=== PATIENT | female | born 1990 | race Caucasian/White ===

== ENCOUNTER 2017-11-21 20:19 | Emergency (ER) | payer OTHER, SELFPAY ==
[2017-11-21 22:04] VITALS: BP 141/80; PULSE 96; RESP 20; TEMP 37.7; O2SAT 100; BMI 60.1
[2017-11-21 22:42] LABS: UTC Influenza A Antigen Negative (Negative); UTC Influenza B Antigen Negative (Negative); UTC Strep Screen (Rapid) Negative (Negative)
--- NOTE | 2017-11-21 22:59 | HMH.EDUTC ---
[facility] [place] Clinical Impression: Viral syndrome, Encounter to obtain excuse from work Disposition: Home, Self-Care Condition on Discharge: Good Instructions: DI for Viral Syndrome Additional Instructions: * No sign of bacterial infection. Likely viral. Virus can take 7-14 days to run their course * Nasal Saline to remove nasal drainage and help with nasal congestion. Hard to eat, drink, sleep with nasal congestion so important to keep nose cleaned out * Monitor Temp. Follow up if fever develops * Encourage fluids, water, gatorade, powerade, pedialyte if infant/toddler/child * warm salt water gargles * warm fluids * sore throat lozenges * sleep elevated * humidifier/vaporizer * Bromfed may cause drowsiness. Know how it effects you (or your child) before driving, caring for small children, or sending your child to school. No other antihistamines/allergy medications while taking bromfed. Prescriptions: Brompheniramine/Pseudoephed/Dm [Bromfed DM Cough Syrup 5mL] 10 ml PO QID PRN #240 ml PRN Reason: Cough Referrals: Silverio Tavera MD [Primary Care Provider] - (IMMEDIATELY for new or worsening symptoms OR no noticeable improvement over the next 48-72 hours. 911 for difficulty breathing or swallowing.) Forms: Work/School Release Time of Disposition: 23:06 Medical Decision Making Vital Signs: 11/21/17 22:04 Temperature 99.8 F H Temperature Source Temporal Artery Scan Pulse Rate [Brachial] 96 H Respiratory Rate 20 Blood Pressure [Right Arm] 141/80 Blood Pressure Mean [Right Arm] 100 Blood Pressure Source [Right Arm] Automatic Cuff Blood Pressure Position [Right Arm] Sitting 02 Sat by Pulse Oximetry 100 Oxygen Delivery Method Room Air - Lab Data Lab results reviewed: Yes: I reviewed the patient's lab results. Lab Results 11/21/17 22:12: Influenza Type A Ag Negative, Influenza Type B Ag Negative, Strep Scn Rapid Clinic Negative Orders (Tests/Meds): ORDERS Category Date Time Status Strep Screen Confirmation Stat Micro 11/21/17 22:12 Received - Michael Inquiry Pt receiving controlled substance: No [facility] [place] H[place] - General Stated complaint: EAR,SOUT THROAT Time Seen by Provider: 11/21/17 22:59 Mode of Arrival: Ambulatory Source of Information: Patient Limitations: No Limitations Description of Symptoms (Recalled from Triage Doc. by RN): EAR PAIN, FEVER, H/A, X 1 WEEK HEENT Symptoms (Recalled from RN notes): Yes Resp Symptoms (Recalled from RN notes): No Skin Symptoms (Recalled from RN notes): No MS Symptoms (Recalled from RN notes): No Functional Status (Recalled from RN notes): NA - History of Present Illness Provider Complaint: c/o multiple intermittent symptoms x 1 week. No symptom has been consistent. Wanting work excuse for tomorrow. States she had appt with PCP earlier in the week but missed it because work relief was late. Tried to schedule another appt but not until next Saturday. Intermittently feeling feverish, intermittent ear pain in both ears, consistent nasal congestion, intermittent sore throat worse at night, intermittently aches all over, fatigue. Ibuprofen helps with aches. No known sick contacts. - Related Data Home Medications Medication Instructions Recorded Confirmed Amitriptyline HCl [Elavil 25mg 0 mg PO ONCE 11/21/17 11/21/17 tablet] Phentermine HCl [Adipex-P] 37.5 mg PO DAILY 11/21/17 11/21/17 Propranolol/Hydrochlorothiazid 1 each PO DAILY 11/21/17 11/21/17 [Propranolol-Hctz 40-25 mg Tab] Topiramate [Topamax] 50 mg PO ONCE 11/21/17 11/21/17 Previous Rx's Medication Instructions Recorded Brompheniramine/Pseudoephed/Dm 10 ml PO QID PRN #240 ml 11/21/17 [Bromfed DM Cough Syrup 5mL] Allergies Allergy/AdvReac Type Severity Reaction Status Date / Time acetaminophen [From TYLENOL] Allergy Unknown Unverified 09/03/17 14:49 methylprednisolone Allergy Unknown Unverified 09/03/17 14:49 [METHYLPREDNISOLONE] Penicillins [PENICILLINS] Aller
--- NOTE | 2017-11-21 23:04 | ED_ITS ---
[facility] [place] [place] Impression: Viral syndrome, Encounter to obtain excuse from work Disposition: Home, Self-Care Condition on Discharge: Good Instructions: DI for Viral Syndrome Additional Instructions: * No sign of bacterial infection. Likely viral. Virus can take 7-14 days to run their course * Nasal Saline to remove nasal drainage and help with nasal congestion. Hard to eat, drink, sleep with nasal congestion so important to keep nose cleaned out * Monitor Temp. Follow up if fever develops * Encourage fluids, water, gatorade, powerade, pedialyte if infant/toddler/ child * warm salt water gargles * warm fluids * sore throat lozenges * sleep elevated * humidifier/vaporizer * Bromfed may cause drowsiness. Know how it effects you (or your child) before driving, caring for small children, or sending your child to school. No other antihistamines/allergy medications while taking bromfed. Prescriptions: Brompheniramine/Pseudoephed/Dm [Bromfed DM Cough Syrup 5mL] 10 ml PO QID PRN # 240 ml PRN Reason: Cough Referrals: Silverio Tavera MD [Primary Care Provider] - (IMMEDIATELY for new or worsening symptoms OR no noticeable improvement over the next 48-72 hours. 911 for difficulty breathing or swallowing.) Forms: Work/School Release Time of Disposition: 23:06 Medical Decision Making Vital Signs: 11/21/17 22:04 Temperature 99.8 F H Temperature Source Temporal Artery Scan Pulse Rate [Brachial] 96 H Respiratory Rate 20 Blood Pressure [Right Arm] 141/80 Blood Pressure Mean [Right Arm] 100 Blood Pressure Source [Right Arm] Automatic Cuff Blood Pressure Position [Right Arm] Sitting 02 Sat by Pulse Oximetry 100 Oxygen Delivery Method Room Air - Lab Data Lab results reviewed: Yes: I reviewed the patient's lab results. Lab Results 11/21/17 22:12: Influenza Type A Ag Negative, Influenza Type B Ag Negative, Strep Scn Rapid Clinic Negative Orders (Tests/Meds): ORDERS Category Date Time Status Strep Screen Confirmation Stat Micro 11/21/17 22:12 Received - Michael Inquiry Pt receiving controlled substance: No [facility] [place] General Stated complaint: EAR,SOUT THROAT Time Seen by Provider: 11/21/17 22:59 Mode of Arrival: Ambulatory Source of Information: Patient Limitations: No Limitations Description of Symptoms (Recalled from Triage Doc. by RN): EAR PAIN, FEVER, H/A , X 1 WEEK HEENT Symptoms (Recalled from RN notes): Yes Resp Symptoms (Recalled from RN notes): No Skin Symptoms (Recalled from RN notes): No MS Symptoms (Recalled from RN notes): No Functional Status (Recalled from RN notes): NA - History of Present Illness Provider Complaint: c/o multiple intermittent symptoms x 1 week. No symptom has been consistent. Wanting work excuse for tomorrow. States she had appt with PCP earlier in the week but missed it because work relief was late. Tried to schedule another appt but not until next Saturday. Intermittently feeling feverish, intermittent ear pain in both ears, consistent nasal congestion, intermittent sore throat worse at night, intermittently aches all over, fatigue. Ibuprofen helps with aches. No known sick contacts. - Related Data Home Medications Medication Instructions Recorded Confirmed Amitriptyline HCl [Elavil 25mg 0 mg PO ONCE 11/21/17 11/21/17 tablet] Phentermine HCl [Adipex-P] 37.5 mg PO DAILY 11/21/17 11/21/17 Ct
[2017-11-21 23:06] VITALS: BP 141/80; PULSE 96; RESP 20; TEMP 37.7
== END 2017-11-21 23:07 | disposition home or self-care (01) ==
PROVIDERS: Emergency Provider Nurse Practitioner Family; Family Provider Emergency Medicine; PCP Emergency Medicine
DX: B34.9 Viral infection, unspecified (principal); G43.009 Migraine without aura, not intractable, without status migrainosus; F17.210 Nicotine dependence, cigarettes, uncomplicated
CPT/HCPCS: 87804; 87880; 99203

== ENCOUNTER → 2018-01-29 08:15 | Outpatient (REF) | payer OTHER, SELFPAY ==
[2018-01-29 13:45] LABS: Basophils # 0.1 K/mm3 (0-0.2); Basophils % 0.4 % (0.1-2.0); Eosinophils # 0.8 K/mm3 (0.0-0.4); Eosinophils % 6.4 % (0.1-12.0); Hemoglobin 13.5 g/dL (12.2-16.2); Lymphocytes # 2.8 K/mm3 (0.7-4.5); Lymphocytes % 21.5 K/mm3 (10-50); Mean Corpuscular HGB Conc 32.2 g/dL (31.8-35.4); Mean Corpuscular Hemoglobin 27.9 pg (27.0-31.2); Mean Corpuscular Volume 86.6 fl (81-99); Mean Platelet Volume 8.6 fl (7.4-10.4); Monocytes # 0.6 K/mm3 (0.1-1.0); Monocytes % 4.8 % (1.7-9.3); Neutrophils # 8.8 K/mm3 (1.8-7.8); Neutrophils % 66.8 % (37.0-80.0); Platelet Count 369 K/mm3 (142-424); Red Blood Count 4.85 M/mm3 (4.20-5.40); White Blood Count 13.1 K/mm3 (4.8-10.8)
[2018-01-29 14:45] LABS: Alanine Aminotransferase 25 U/L (12-78); Albumin Level 3.6 gm/dL (3.4-5.0); Albumin/Globulin Ratio 0.9 (1.1-1.8); Alkaline Phosphatase 101 U/L (46-116); Aspartate Amino Transferase 18 U/L (15-37); Bilirubin,Total 0.4 mg/dL (0.2-1.0); Blood Urea Nitrogen 12 mg/dL (7-18); Calcium 9.1 mg/dL (8.5-10.1); Carbon Dioxide 23 mmol/L (21.0-32.0); Chloride 103 mmol/L (98-107); Chol/HDL Ratio 2.8 (1-3.5); Cholesterol 141 mg/dL (140-200); Creatinine,Serum 0.61 mg/dL (0.55-1.02); Estimated Glomerular Filt Rate 117 ml/min (>60); GFR (African American) 141 ML/MIN (>60); Globulin 3.9 gm/dl (1.3-3.2); Glucose 88 mg/dL (74-106); HDL Cholesterol 50 mg/dL (29-89); LDL Cholesterol 78 mg/dL (0-130); Sodium 140 mmol/L (136-145); T4 (Thyroxine) 9.2 ug/dl (4.7-13.3); Thyroid Stimulating Hormone 4.42 uIU/ml (0.358-3.740); Total Protein,Serum 7.5 gm/dL (6.4-8.2); Triglycerides 65 mg/dL (30-200); VLDL Cholesterol 13 mg/dL (0-40)
[2018-01-30 13:32] LABS: LH 5.1 mIU/mL (.); Progesterone 0.1 ng/mL (.); Vitamin D 25 Hydroxy 15.4 ng/mL (30.0-100.0)
[2018-01-31 13:03] LABS: Neisseria gonorrhoeae, NAA Positive (Negative)
[2018-02-01 05:21] LABS: Estrogen 266 pg/mL (.)
== END ==
LOC: LAB 08:15
PROVIDERS: Visit Provider Physician Assistant
DX: R30.9 Painful micturition, unspecified (principal); R53.83 Other fatigue; N89.8 Other specified noninflammatory disorders of vagina; N94.9 Unspecified condition associated with female genital organs and menstrual cycle
CPT/HCPCS: 80053; 80061; 82652; 82672; 83001; 83002; 84144; 84436; 84443; 85025; 87086; 87210; 87491; 87591

== ENCOUNTER → 2018-02-11 15:28 | Outpatient (REF) | payer OTHER, SELFPAY ==
[2018-02-14 19:22] LABS: Neisseria gonorrhoeae, NAA Negative (Negative)
== END ==
LOC: LAB 15:28
PROVIDERS: Visit Provider Physician Assistant
DX: N89.8 Other specified noninflammatory disorders of vagina (principal)
CPT/HCPCS: 87210; 87491; 87591

== ENCOUNTER → 2018-05-13 15:49 | Outpatient (REF) | payer OTHER, SELFPAY ==
[2018-05-13 20:01] LABS: Hemoglobin A1C 5.9 % (0.0-7.0)
== END ==
LOC: LAB 15:49
PROVIDERS: Visit Provider Nurse Practitioner Family
DX: R30.0 Dysuria (principal); N89.8 Other specified noninflammatory disorders of vagina
CPT/HCPCS: 83036; 87086; 87210

== ENCOUNTER → 2018-09-29 18:06 | Outpatient (CLI) | payer OTHER, SELFPAY ==
[2018-09-29 18:36] LABS: Basophils # 0.1 K/mm3 (0-0.2); Basophils % 0.4 % (0.1-2.0); Eosinophils # 0.5 K/mm3 (0.0-0.4); Eosinophils % 3.2 % (0.1-12.0); Hematocrit 40.8 % (37.0-47.0); Hemoglobin 12.8 g/dL (12.2-16.2); Lymphocytes # 3.1 K/mm3 (0.7-4.5); Lymphocytes % 21.3 % (10-50); Mean Corpuscular HGB Conc 31.4 g/dL (31.8-35.4); Mean Corpuscular Hemoglobin 26.9 pg (27.0-31.2); Mean Corpuscular Volume 85.6 fl (81-99); Mean Platelet Volume 8.2 fl (7.4-10.4); Monocytes # 0.8 K/mm3 (0.1-1.0); Monocytes % 5.7 % (1.7-9.3); Neutrophils # 10.1 K/mm3 (1.8-7.8); Neutrophils % 69.3 % (37.0-80.0); Platelet Count 388 K/mm3 (142-424); Red Blood Count 4.77 M/mm3 (4.20-5.40); Red Cell Distribution Width 14.1 % (11.5-17.5); White Blood Count 14.6 K/mm3 (4.8-10.8)
[2018-09-29 19:22] LABS: Alanine Aminotransferase 26 U/L (12-78); Albumin Level 3.6 gm/dL (3.4-5.0); Albumin/Globulin Ratio 0.9 (1.1-1.8); Alkaline Phosphatase 94 U/L (46-116); Anion Gap 12.6 mEq/L (5-15); Aspartate Amino Transferase 14 U/L (15-37); Bilirubin,Total 0.3 mg/dL (0.2-1.0); Blood Urea Nitrogen 15 mg/dL (7-18); Calcium 8.7 mg/dL (8.5-10.1); Carbon Dioxide 27 mmol/L (21.0-32.0); Chloride 104 mmol/L (98-107); Chol/HDL Ratio 3.4 (1-3.5); Cholesterol 119 mg/dL (140-200); Estimated Glomerular Filt Rate 99 ml/min (>60); GFR (African American) 120 ML/MIN (>60); Globulin 3.8 gm/dl (1.3-3.2); Glucose 100 mg/dL (74-106); HDL Cholesterol 35 mg/dL (29-89); LDL Cholesterol 63 mg/dL (0-130); Potassium 3.6 mmoL/L (3.5-5.1); Sodium 140 mmol/L (136-145); T4 (Thyroxine) 8.6 ug/dl (4.7-13.3); Thyroid Stimulating Hormone 2.97 uIU/ml (0.358-3.740); Total Protein,Serum 7.4 gm/dL (6.4-8.2); Triglycerides 105 mg/dL (30-200); VLDL Cholesterol 21 mg/dL (0-40)
[2018-09-30 09:13] LABS: HCG Qualitative, Serum Negative (Negative)
== END ==
PROVIDERS: Visit Provider Physician Assistant
DX: R63.5 Abnormal weight gain (principal); R30.9 Painful micturition, unspecified
CPT/HCPCS: 80053; 80061; 82652; 84436; 84443; 84703; 85025; 87086

== ENCOUNTER → 2018-10-15 08:05 | Outpatient (CLI) | payer OTHER, SELFPAY ==
--- NOTE | 2018-10-15 08:08 | CA_ITS ---
PROCEDURE: 2-D M-mode and color Doppler study INDICATIONS FOR THE TEST: Chest pain+ COPD Heart Murmur Tobacco SmokingEX Palpitations+ Fatigue+ Syncope Edema+ Hypertension+Diabetes Mellitus Rheumatic Fever SOB+MOSCOSO+Obesity+Hyperlipidemia Family History HD+ Additional History asthma PATIENT INFORMATION HEIGHT: 61 WEIGHT: 334 GENDER: Female B/P: 162/101 2-D/M-MODE INTERPRETATION: 2-D MEASUREMENTS OBSERVED VALUES IN CMS Right Ventricular Dimension (RVDd) 1.7 Interventricular Septum (Thickness)(IVsd) 0.9 Left Ventricular Internal Dimensions(LVIDd) 5.0 Left Ventricular Posterior Wall (Thickness)(LVPWd) 1.0 Aortic Root 2.6 Aortic Cusp Separation 2.0 Left Atrial Dimensions (LAD) 3.9 2D 1. Technically difficult study because of the patient's factor and poor acoustic windows 2. The left atrium is upper limit of the normal size, left ventricle is normal size, there is no concentric left ventricular hypertrophy, visually estimated ejection fraction approximately 55% with no regional wall motion abnormality. 3. The right atrium and right ventricle are normal size and contractility. 4. The aortic valve is not well visualized. 5. The mitral and tricuspid valvular grossly normal. 6. The pulmonic valve is poorly visualized. 7. No significant pericardial effusion noted. DOPPLER INTERROGATION: Doppler interrogation of the aortic, mitral and tricuspid valvular presence of mild mitral and tricuspid regurgitation, tricuspid regurgitation jet velocity is inadequate for calculation of the right ventricular systolic pressure, diastolic parameters are within normal range. CONCLUSION: 1. Technically difficult study because of the patient's factor and poor acoustic windows 2. Normal left ventricular size, preserved left ventricular systolic function, visually estimated ejection fraction 55% with no regional wall motion abnormality. Diastolic parameters are within normal range. 3. Mild mitral and tricuspid regurgitation 4. No significant pericardial effusion noted.
[2018-10-15 08:17] LABS: Microscopic, Urine URINE MICROSCOPIC (MICROSCOPIC)
[2018-10-15 08:32] LABS: Basophils # 0.1 K/mm3 (0-0.2); Basophils % 0.4 % (0.1-2.0); Eosinophils # 0.3 K/mm3 (0.0-0.4); Eosinophils % 3.2 % (0.1-12.0); Hematocrit 38.2 % (37.0-47.0); Hemoglobin 12.1 g/dL (12.2-16.2); Lymphocytes # 2.4 K/mm3 (0.7-4.5); Lymphocytes % 22.1 % (10-50); Mean Corpuscular HGB Conc 31.7 g/dL (31.8-35.4); Mean Corpuscular Hemoglobin 26.6 pg (27.0-31.2); Mean Corpuscular Volume 84.1 fl (81-99); Mean Platelet Volume 7.5 fl (7.4-10.4); Monocytes # 0.6 K/mm3 (0.1-1.0); Monocytes % 5.7 % (1.7-9.3); Neutrophils # 7.4 K/mm3 (1.8-7.8); Neutrophils % 68.6 % (37.0-80.0); Platelet Count 337 K/mm3 (142-424); Red Blood Count 4.54 M/mm3 (4.20-5.40); Red Cell Distribution Width 14.1 % (11.5-17.5); White Blood Count 10.8 K/mm3 (4.8-10.8)
[2018-10-15 08:39] LABS: Appearance,Urine SL CLOUDY (Clear); Bilirubin,Urine Negative (Negative); Blood, Urine Negative (Negative); Color,Urine YELLOW (Yellow); Glucose,Urine (UA) Negative (Negative); Ketones,Urine Negative (Negative); Leukocyte Esterase,Urine TRACE (Negative); Nitrate,Urine Negative (Negative); Protein,Urine Negative (Negative); Urobilinogen,Urine 0.2 EU/dl (0.2)
[2018-10-15 09:08] LABS: Bacteria,Urine 2+ /lpf
[2018-10-15 09:53] LABS: Alanine Aminotransferase 20 U/L (12-78); Albumin Level 3.2 gm/dL (3.4-5.0); Alkaline Phosphatase 89 U/L (46-116); Anion Gap 11.1 mEq/L (5-15); Aspartate Amino Transferase 13 U/L (15-37); Bilirubin,Direct 0.1 mg/dL (0.0-0.2); Bilirubin,Indirect 0.3 mg/dL (0.0-0.9); Bilirubin,Total 0.4 mg/dL (0.2-1.0); Blood Urea Nitrogen 16 mg/dL (7-18); Calcium 8.2 mg/dL (8.5-10.1); Carbon Dioxide 27 mmol/L (21.0-32.0); Chloride 105 mmol/L (98-107); Cholesterol 114 mg/dL (140-200); Creatinine,Serum 0.66 mg/dL (0.55-1.02); Estimated Glomerular Filt Rate 106 ml/min (>60); Free T4 (Free Thyroxine) 1.09 ng/dl (0.76-1.46); GFR (African American) 128 ML/MIN (>60); Glucose 95 mg/dL (74-106); HDL Cholesterol 38 mg/dL (29-89); LDL Cholesterol 68 mg/dL (0-130); Potassium 4.1 mmoL/L (3.5-5.1); Sodium 139 mmol/L (136-145); Total Protein,Serum 6.7 gm/dL (6.4-8.2); Triglycerides 39 mg/dL (30-200); VLDL Cholesterol 8 mg/dL (0-40)
== END ==
PROVIDERS: PCP Emergency Medicine; Visit Provider Internal Medicine
DX: R06.00 Dyspnea, unspecified (principal); R07.9 Chest pain, unspecified; R94.31 Abnormal electrocardiogram [ECG] [EKG]
CPT/HCPCS: 36415; 80048; 80061; 80076; 81001; 84439; 84443; 85025; 87086; 93017; 93306

== ENCOUNTER → 2019-04-08 15:34 | Outpatient (CLI) | payer OTHER, SELFPAY | PROVIDERS: Visit Provider Physician Assistant | DX: N89.8 Other specified noninflammatory disorders of vagina (principal); R30.0 Dysuria | CPT/HCPCS: 87086; 87210 ==

== ENCOUNTER → 2019-11-09 10:10 | Outpatient (CLI) | payer OTHER, SELFPAY | PROVIDERS: Visit Provider Physician Assistant | DX: N76.0 Acute vaginitis (principal) | CPT/HCPCS: 87086; 87210 ==

== ENCOUNTER → 2019-11-09 13:50 | Outpatient (CLI) | payer OTHER, SELFPAY | PROVIDERS: Visit Provider Physician Assistant | DX: N39.0 Urinary tract infection, site not specified (principal) | CPT/HCPCS: 87086 ==

== ENCOUNTER → 2019-12-11 11:37 | Outpatient (CLI) | payer OTHER, SELFPAY ==
[2019-12-11 15:31] LABS: HCG,Quantitative < 2 mIU/ml (0-5.42)
== END ==
PROVIDERS: Visit Provider Nurse Practitioner Obstetrics & Gynecology
DX: N92.6 Irregular menstruation, unspecified (principal)
CPT/HCPCS: 36415; 84702

== ENCOUNTER 2020-04-14 08:17 | Emergency (ER) | payer OTHER, SELFPAY ==
[2020-04-14 08:29] VITALS: BP 156/95; PULSE 84; RESP 17; TEMP 36.9; O2SAT 100; BMI 45.6
--- NOTE | 2020-04-14 08:35 | XR_ITS ---
PROCEDURE: XR KNEE RT 3V CLINICAL INDICATION: fall Patient had a fall on Saturday. COMPARISON: No exams were available for comparison FINDINGS: No fracture or dislocation. No lytic or blastic change. There is normal mineralization. Moderate osteoarthrosis of the medial and lateral femorotibial compartments with joint space narrowing and small osteophytes formation.. No erosive changes evident. Other findings:No substantial joint effusion is seen. IMPRESSION: 1. No acute findings. 2. Osteoarthrosis. Dictated by: Jayesh Torres 04/14/2020 10:53 Electronically signed by Jayesh Torres in [facility] 04/14/2020 10:53
--- NOTE | 2020-04-14 08:44 | XR_ITS ---
PROCEDURE: XR RIBS LT MIN 3V W CXR1V CLINICAL INDICATION: fall, left rib pain Fall on Saturday. Limited mobility. COMPARISON: CXR CHEST(2 VIEWS-NOT PORTABLE) from 06/20/2016 CXR CHEST(2 VIEWS-NOT PORTABLE) from 05/08/2017 Chest from 03/27/2019 FINDINGS: Exam is somewhat limited due to patient large body habitus. No rib fracture or acute bony pathology is identified. The lungs are somewhat under expanded. The heart, aorta and remaining visualized mediastinal structures appear unremarkable. Trachea is in midline. No parenchymal infiltration is seen. No pleural effusion or pneumothorax. IMPRESSION: No acute findings. Dictated by: Jayesh Torres 04/14/2020 10:08 Electronically signed by Jayesh Torres in [place] 04/14/2020 10:08
--- NOTE | 2020-04-14 08:48 | PC.NURSE ---
pt with rad at this time
--- NOTE | 2020-04-14 09:00 | HMH.EDGENADL ---
ED Disposition Clinical Impression: Right knee sprain Qualifiers: Encounter type: initial encounter Involved ligament of knee: other ligament Qualified Code(s): S83.8X1A - Sprain of other specified parts of right knee, initial encounter Contusion of rib on left side Qualifiers: Encounter type: initial encounter Qualified Code(s): S20.212A - Contusion of left front wall of thorax, initial encounter Disposition: Home, Self-Care Condition on Discharge: Good Instructions: DI for Knee Sprain Additional Instructions: You have been evaluated for knee pain and rib pain after a fall. No fractures found. You likely have a knee sprain. Follow-up with your primary care doctor. You may need to see orthopedics. Take Tylenol and ibuprofen for pain Referrals: Ashlie Marcelino PA [Primary Care Provider] - Time of Disposition: 09:52 - Critical Care Critical Care Time: No Attestation: On 04/14/20, the high probability of a clinically significant, sudden or life threatening deterioration of the following system(s) required my full and direct attention, intervention and personal management. The time I documented below is in addition to time spent performing reported procedures but includes the following listed in this critical care notation. Medical Decision Making - Medical Records Medical records reviewed: Yes: I reviewed the patient's medical records. - Michael Inquiry Pt receiving controlled substance: No Vital Signs: 04/14/20 08:29 04/14/20 09:19 04/14/20 10:00 Temperature 98.4 F 98.4 F Temperature Source Oral Oral Pulse Rate 78 Pulse Rate [Radial] 84 78 Respiratory Rate 17 22 17 Blood Pressure 168/95 H Blood Pressure [Right Arm] 156/95 H 168/95 H Blood Pressure Mean [Right Arm] 115 119 Blood Pressure Source Automatic Cuff Blood Pressure Source [Right Arm] Automatic Cuff Automatic Cuff Blood Pressure Position Sitting Blood Pressure Position [Right Arm] Sitting 02 Sat by Pulse Oximetry 100 97 Oxygen Delivery Method Room Air Room Air Room Air Medical Decision Narrative: In summary this is a 29-year-old female presenting to the emergency department with traumatic right knee pain and left-sided back pain. Patient is in no distress on arrival. Vital signs are stable. Knee exam is remarkable for tenderness on the medial aspect, no ligamentous laxity. Neurovascularly intact. Differential diagnoses include contusion, effusion, patellar injury. Story does not sound like knee dislocation that reduced. Differential for back pain is concerning for contusion, rib fracture. Plan to obtain plain film x-rays of the right knee and left ribs and reassess. General Adult HPI - General Chief complaint: Fall Stated complaint: ao04/09/20 fell back right knee Time Seen by Provider: 04/14/20 08:20 Mode of Arrival: Ambulatory Limitations: No Limitations Description of Symptoms (Recalled from ER Triage Doc. by RN): Reports she fell a couple of days ago at [place] and hurt her right leg and back. - History of Present Illness HPI narrative: 29-year-old female presenting to the emergency department with right knee pain and left-sided back pain after a fall. Patient says that she was at a swimming pool 2 days ago when she went to grab her child and slipped and fell. She had immediate pain in her right knee that was described as sharp. Located on the inner aspect. Did not radiate. She was in the water but fell back and struck her posterior ribs on a concrete wall. She was able to stand and ambulate after the event. Had persistent pain over the last few days. Pain is worse in the morning. She has pain when standing and walking on her right leg. Feels like her knee is going to buckle. No pain in her ankle, hip. Pain in the back is described as throbbing and intermittent, worse with motion or when she touches it. No lacerations. She has been taking Tylenol for pain. She did not strike her head. No other
--- NOTE | 2020-04-14 09:00 | PC.NURSE ---
PT BACK FROM RAD
[2020-04-14 09:19] VITALS: BP 168/95; PULSE 78; RESP 22; O2SAT 97
[2020-04-14 10:00] VITALS: BP 168/95; PULSE 78; RESP 17; TEMP 36.9; O2SAT 97
== END 2020-04-14 10:02 | disposition home or self-care (01) ==
PROVIDERS: Emergency Provider Emergency Medicine; PCP Physician Assistant
DX: S20.212A Contusion of left front wall of thorax, initial encounter (principal); S83.8X1A Sprain of other specified parts of right knee, initial encounter; W01.0XXA Fall on same level from slipping, tripping and stumbling without subsequent striking against object, initial encounter; Y93.11 Activity, swimming; Y92.34 Swimming pool (public) as the place of occurrence of the external cause; Z88.0 Allergy status to penicillin; Z87.891 Personal history of nicotine dependence; Z79.899 Other long term (current) drug therapy
CPT/HCPCS: 71101; 73562; 99282

== ENCOUNTER → 2020-07-13 17:49 | Outpatient (CLI) | payer OTHER, SELFPAY | PROVIDERS: Visit Provider Physician Assistant | DX: N39.0 Urinary tract infection, site not specified (principal) | CPT/HCPCS: 87086 ==

== ENCOUNTER → 2020-07-19 08:37 | Outpatient (CLI) | payer OTHER, SELFPAY ==
--- NOTE | 2020-07-19 08:43 | XR_ITS ---
PROCEDURE: XR KNEE RT 4V weight-bearing CLINICAL INDICATION: right knee pain COMPARISON: No exams were available for comparison FINDINGS: No fracture or dislocation. No lytic or blastic change. There is normal mineralization. There is moderate joint space narrowing medially.. There is minor spurring of the medial femoral condyle and medial tibial plateau. There is minor narrowing of the patellofemoral space. There is no definite effusion. The soft tissues are consistent with a morbidly obese patient. Other findings:None. IMPRESSION: Minor degenerate changes as noted Dictated by: Dr. Manuel Fonseca MD 07/19/2020 09:16 Dr. Manuel Fonseca MD in [place] 07/19/2020 09:16
== END ==
PROVIDERS: PCP Physician Assistant; Visit Provider Orthopaedic Surgery
DX: M25.561 Pain in right knee (principal)
CPT/HCPCS: 73564

== ENCOUNTER → 2020-07-20 18:00 | Outpatient (CLI) | payer OTHER, SELFPAY ==
[2020-07-20 18:47] LABS: Basophils # 0.1 K/mm3 (0-0.2); Basophils % 0.4 % (0.1-2.0); Eosinophils # 0.3 K/mm3 (0.0-0.4); Eosinophils % 2.7 % (0.1-12.0); Hematocrit 42.3 % (37.0-47.0); Hemoglobin 12.5 g/dL (12.2-16.2); Lymphocytes # 3.1 K/mm3 (0.7-4.5); Lymphocytes % 24.8 % (10-50); Mean Corpuscular HGB Conc 29.5 g/dL (31.8-35.4); Mean Corpuscular Hemoglobin 25.7 pg (27.0-31.2); Mean Corpuscular Volume 87.2 fl (81-99); Mean Platelet Volume 8.1 fl (7.4-10.4); Monocytes # 0.7 K/mm3 (0.1-1.0); Monocytes % 5.8 % (1.7-9.3); Neutrophils # 8.3 K/mm3 (1.8-7.8); Neutrophils % 66.3 % (37.0-80.0); Platelet Count 392 K/mm3 (142-424); Red Blood Count 4.85 M/mm3 (4.20-5.40); Red Cell Distribution Width 13.9 % (11.5-17.5); White Blood Count 12.6 K/mm3 (4.8-10.8)
[2020-07-20 19:49] LABS: Alanine Aminotransferase 16 U/L (12-78); Albumin/Globulin Ratio 1.3 (1.1-1.8); Alkaline Phosphatase 109 U/L (38-126); Anion Gap 14.3 mEq/L (5-15); Aspartate Amino Transferase 23 U/L (14-36); Bilirubin,Total 0.4 mg/dl (0.2-1.3); Blood Urea Nitrogen 17 mg/dl (7-17); Calcium 9.3 mg/dl (8.4-10.2); Carbon Dioxide 27 mmol/L (22.0-30.0); Chloride 102 mmol/L (98-107); Chol/HDL Ratio 2.9 (1-3.5); Cholesterol 143 mg/dl (140-200); Estimated Glomerular Filt Rate 117 ml/min (>60); GFR (African American) 141 ML/MIN (>60); Globulin 3.2 g/dL (1.3-3.2); Glucose 80 mg/dl (74-100); HDL Cholesterol 50 mg/dl (40-60); Potassium 4.3 mmoL/L (3.5-5.1); Sodium 139 mmol/L (136-145); Total Protein,Serum 7.2 g/dl (6.3-8.2); Triglycerides 126 mg/dl (30-150); VLDL Cholesterol 25 mg/dL (0-40)
[2020-07-20 20:21] LABS: Thyroid Stimulating Hormone 3.59 uIU/mL (0.465-4.68)
[2020-07-20 20:24] LABS: 25-OH Vitamin D, Total < 12.8 ng/mL (30-100)
== END ==
PROVIDERS: Visit Provider Physician Assistant
DX: E03.9 Hypothyroidism, unspecified (principal); E55.9 Vitamin D deficiency, unspecified; E66.01 Morbid (severe) obesity due to excess calories
CPT/HCPCS: 80053; 80061; 82306; 84443; 85025

== ENCOUNTER → 2020-08-02 17:59 | Outpatient (CLI) | payer OTHER, SELFPAY | PROVIDERS: Visit Provider Nurse Practitioner Family | DX: M54.9 Dorsalgia, unspecified (principal) | CPT/HCPCS: 87086 ==

== ENCOUNTER 2020-10-03 08:05 | Emergency (ER) | payer OTHER, SELFPAY ==
[2020-10-03 08:05] VITALS: BP 167/92; PULSE 81; RESP 16; TEMP 36.8; O2SAT 99; BMI 64.2
--- NOTE | 2020-10-03 08:09 | PC.NURSE ---
Called radiology for x-ray orders that will be entered momentarily.
--- NOTE | 2020-10-03 08:33 | XR_ITS ---
PROCEDURE: XR KNEE RT 3V CLINICAL INDICATION: pain COMPARISON: No exams were available for comparison FINDINGS: No fracture or dislocation. No lytic or blastic change. There is normal mineralization. There are mild osteoarthritic changes involving all 3 compartments. Other findings:None. IMPRESSION: Mild osteoarthritis overall not significantly changed Dictated by: Wood Carr MD 10/03/2020 09:07 Wood Carr MD in [place] 10/03/2020 09:07
[2020-10-03 08:35] VITALS: BP 151/83; PULSE 83; O2SAT 100
--- NOTE | 2020-10-03 08:42 | PC.NURSE ---
pt to radiology
--- NOTE | 2020-10-03 08:50 | HMH.EDGENADL ---
ED Disposition Clinical Impression: Right knee sprain Qualifiers: Involved ligament of knee: unspecified ligament Disposition: Home, Self-Care Condition on Discharge: Good Prescriptions: Ibuprofen [Ibuprofen 800mg Tablet] 800 mg PO TIDP PRN #20 tab PRN Reason: Moderate Pain Transmission Status: Pending to [facility] Referrals: Ashlie Marcelino PA [Primary Care Provider] - - Critical Care Critical Care Time: No Attestation: On 10/03/20, the high probability of a clinically significant, sudden or life threatening deterioration of the following system(s) required my full and direct attention, intervention and personal management. The time I documented below is in addition to time spent performing reported procedures but includes the following listed in this critical care notation. Medical Decision Making - Medical Records Medical records reviewed: Yes: I reviewed the patient's medical records. - Michael Inquiry Pt receiving controlled substance: No Vital Signs: 10/03/20 08:05 10/03/20 08:35 10/03/20 09:05 Temperature 98.2 F Temperature Source Oral Pulse Rate [Right] 81 83 79 Respiratory Rate 16 Blood Pressure [Right Arm] 167/92 H 151/83 H 152/61 H Blood Pressure Mean [Right Arm] 117 105 91 Blood Pressure Source [Right Arm] Automatic Cuff Automatic Cuff Automatic Cuff Blood Pressure Position [Right Arm] Sitting Sitting Sitting 02 Sat by Pulse Oximetry 99 100 100 Oxygen Delivery Method Room Air Room Air Room Air Orders (Tests/Meds): ED MEDICATIONS Discontinued Medications Generic Name Dose Route Start Last Admin Trade Name Freq PRN Reason Stop Dose Admin Ibuprofen 800 mg 10/03/20 08:33 10/03/20 08:38 Ibuprofen 400 Mg Tablet PO 10/03/20 08:34 800 mg ONCE ONE Administration - Radiology Data #1 Image(s): Knee Image Reviewed: Yes I reviewed the patient's radiology results, Yes I reviewed the patient's radiology image, Yes I have reviewed radiologist's interpretation Preliminary Findings: No Fracture Seen IMPRESSION: Mild osteoarthritis overall not significantly changed - Reevaluation(s) Time: 09:31 Reevaluation #1: On reevaluation, pain is improved. No deformity on x-ray. Patient is to follow-up with PCP. Given strict return precautions. Verbalized understanding. Medical Decision Narrative: 30-year-old female presented to the emergency department with right knee pain. Findings are consistent with a sprain. Patient has good range of motion. Imaging obtained. General Adult HPI - General Chief complaint: PAIN Stated complaint: right knee pain Time Seen by Provider: 10/03/20 08:10 Mode of Arrival: Ambulatory Limitations: No Limitations Description of Symptoms (Recalled from ER Triage Doc. by RN): Pt advises a month ago she sprained he right knee and today it is very painful and hurts to walk on it - History of Present Illness HPI narrative: This is a 30-year-old female presented to the emergency department with some right knee pain. The patient has a history of frequent knee sprains. She states that 3 days ago she twisted her knee and has been having some pain since then. She states it is worse when she tries to walk on it. She is able to bend it, however elicits some pain. She has not been taking anything for the pain. She denies any other injuries. No fevers or chills. No rash. No chest pain or shortness of breath. No abdominal pain or vomiting. - Related Data Home Medications Medication Instructions Recorded Confirmed losartan 25 mg tablet 25 mg PO DAILY 04/08/19 09/22/20 Previous Rx's Medication Instructions Recorded cetirizine 10 mg capsule 10 mg PO DAILY #30 cap 09/26/19 albuterol sulfate 90 mcg/actuation 2 puff INHALATION Q6H 30 Days #6.7 10/22/19 aerosol inhaler g nystatin 100,000 unit/gram topical 1 applic TOPICAL TID #60 g 07/13/20 powder ergocalciferol (vitamin D2) 1,250 1,250 mcg PO W
[2020-10-03 09:05] VITALS: BP 152/61; PULSE 79; O2SAT 100
[2020-10-03 09:30] VITALS: BP 142/75; PULSE 97; O2SAT 100
[2020-10-03 09:55] VITALS: BP 142/75; PULSE 96; RESP 20; TEMP 36.8; O2SAT 100
== END 2020-10-03 09:55 | disposition home or self-care (01) ==
PROVIDERS: Emergency Provider Emergency Medicine; PCP Physician Assistant
DX: S83.8X1A Sprain of other specified parts of right knee, initial encounter (principal); X50.1XXA Overexertion from prolonged static or awkward postures, initial encounter; Y92.019 Unspecified place in single-family (private) house as the place of occurrence of the external cause; I10 Essential (primary) hypertension; E03.9 Hypothyroidism, unspecified; J45.909 Unspecified asthma, uncomplicated; Z88.0 Allergy status to penicillin
CPT/HCPCS: 73562; 99283

== ENCOUNTER → 2021-01-17 13:58 | Outpatient (CLI) | payer OTHER, SELFPAY | PROVIDERS: Visit Provider Physician Assistant | DX: R39.9 Unspecified symptoms and signs involving the genitourinary system (principal) | CPT/HCPCS: 87086 ==

== ENCOUNTER → 2021-02-06 11:00 | Outpatient (CLI) | payer OTHER, SELFPAY ==
--- NOTE | 2021-02-06 11:02 | US_ITS ---
PROCEDURE: US URINARY BLADDER CLINICAL INDICATION: bladder pressure, urgencxy COMPARISON: No exams were available for comparison FINDINGS: Urinary bladder has an unremarkable appearance with ureteral jets noted. The full bladder volume is calculated at 102 mL. There is a small amount of postvoid urine noted calculated at 9 mL. No obvious urinary bladder mass. IMPRESSION: Unremarkable appearance of the urinary bladder with minimal postvoid urine of 9 mL Dictated by: Wood Carr MD 02/06/2021 12:12 Wood Carr MD in [facility] 02/06/2021 12:12
== END ==
PROVIDERS: PCP Physician Assistant; Visit Provider Physician Assistant
DX: R39.89 Other symptoms and signs involving the genitourinary system (principal)
CPT/HCPCS: 76857

== ENCOUNTER → 2021-04-10 14:59 | Outpatient (CLI) | payer OTHER, SELFPAY | PROVIDERS: Visit Provider Physician Assistant | DX: N39.0 Urinary tract infection, site not specified (principal); N76.0 Acute vaginitis | CPT/HCPCS: 87086; 87210 ==

== ENCOUNTER → 2021-05-03 15:54 | Outpatient (CLI) | payer OTHER, SELFPAY | PROVIDERS: Visit Provider Physician Assistant | DX: N76.0 Acute vaginitis (principal) | CPT/HCPCS: 87210 ==

== ENCOUNTER → 2021-05-04 08:32 | Outpatient (CLI) | payer OTHER, SELFPAY ==
[2021-05-04 10:16] LABS: HCG Qualitative, Serum Negative (Negative)
[2021-05-05 09:32] LABS: HSV 2 IgG, Type Spec <0.91 index (0.00-0.90); Hep A Ab, IgM Negative (Negative); Hepatitis B Core Antibody IgM Negative (Negative); Hepatitis B Surface Antigen Negative (Negative); Hepatitis C Antibody <0.1 s/co ratio (0.0-0.9); Rapid Plasma Reagin Ab Titer Non Reactive (NonRea<1:1)
[2021-05-05 22:11] LABS: Neisseria gonorrhoeae, NAA Negative (Negative)
[2021-05-06 05:09] LABS: HIV Screen 4th Generation wRfx Non Reactive (Non Reactive)
== END ==
PROVIDERS: Visit Provider Physician Assistant
DX: N76.0 Acute vaginitis (principal); Z11.4 Encounter for screening for human immunodeficiency virus [HIV]
CPT/HCPCS: 80074; 84703; 86592; 86695; 86703; 86790; 87086; 87491; 87591; G0432

== ENCOUNTER → 2021-06-28 13:48 | Outpatient (CLI) | payer OTHER, SELFPAY | PROVIDERS: Visit Provider Nurse Practitioner Family | DX: N39.0 Urinary tract infection, site not specified (principal) | CPT/HCPCS: 87086 ==

== ENCOUNTER 2021-08-22 09:06 | Emergency (ER) | payer OTHER, SELFPAY ==
[2021-08-22 10:00] LABS: Adenovirus,PCR Not Detected (NotDetected); Coronavirus 229E Not Detected (NotDetected); Coronavirus NL63 Not Detected (NotDetected); Coronavirus OC43 Not Detected (NotDetected); Coronovirus HKU1,PCR Not Detected (NotDetected); Human Metapneumovirus Not Detected (NotDetected); Influenza A, PCR Not Detected (NotDetected); Influenza AH1, 2009 Not Detected (NotDetected); Influenza AH1, PCR Not Detected (NotDetected); Influenza AH3,PCR Not Detected (NotDetected); Influenza B, PCR Not Detected (NotDetected); Parainfluenza 1, PCR Not Detected (NotDetected); Parainfluenza 2, PCR Not Detected (NotDetected); Rhinovirus/Enterovirus Not Detected (NotDetected)
[2021-08-22 10:01] LABS: Bordetella Pertussis Not Detected (NotDetected); Chlamydophila Pneumoniae, PCR Not Detected (NotDetected); Coronavirus 19, PCR Not Detected (NotDetected); Mycoplasma Pneumoniae, PCR Not Detected (NotDetected); Parainfluenza 3, PCR Not Detected (NotDetected); Parainfluenza 4, PCR Not Detected (NotDetected); Respiratory Syncytial Virus Not Detected (NotDetected)
[2021-08-22 10:02] VITALS: BP 149/91; PULSE 87; RESP 19; TEMP 36.8; O2SAT 99; BMI 55.7
--- NOTE | 2021-08-22 10:12 | HMH.EDUTC ---
[facility] [place] Clinical Impression: Viral upper respiratory illness Disposition: Home, Self-Care Condition on Discharge: Good Instructions: DI for Viral Upper Respiratory Infection -- Adult Additional Instructions: *Monitor Temp, Over the counter Motrin or Tylenol as directed/as needed Tylenol every 4 hours and Motrin every 6 hours (as long as your family doctor has told you that you can take it) for fever or pain. and straight to ER if unable to lower temp less than 101.0 after medication given *Warm salt water gargles may help to soothe the throat *Throat Lozenges *Warm fluids like tea with honey may help to soothe the throat *Sleep elevated *Humidifier/Vaporizer Your throat swab was sent for culture. Those results are typically sent to your primary care. Be sure to follow up in 2-3 days with your family doctor/primary care physician if no improvement so they can review those result and treat if necessary. If you don?t have a primary care doctor, I recommend you get one but in the mean time, you will have to return to a walk in clinic Follow up IMMEDIATELY for new or worsening symptoms or no Noticeable improvement over the next 48-72 hours. 911 for difficulty breathing or swallowing You were tested for today for COVID19 your test result should be back in the next 24-48 hours, you may check your results on the [facility] My Health portal if you have trouble logging on or seeing your results you may call You was given a handout with instructions for Self Quarantine and Self isolation for while you wait on test results and what to do if they are positive If you are positive the Health Dept will be contacting you also Make sure to take your Vitamins Vit. C Vit D and Zinc if you can take them Prescriptions: Benzonatate [Benzonatate 100mg cap] 100 mg PO TID PRN #15 cap PRN Reason: Cough Transmission Status: Pending to [facility] Referrals: Ashlie Marcelino PA [Primary Care Provider] - As needed Time of Disposition: 10:18 Medical Decision Making - Michael Inquiry Pt receiving controlled substance: No Michael was queried for this patient: No Vital Signs: 08/22/21 10:02 Temperature 98.3 F Temperature Source Oral Pulse Rate [Right Brachial] 87 Respiratory Rate 19 Blood Pressure [Right Arm] 149/91 H Blood Pressure Mean [Right Arm] 110 Blood Pressure Source [Right Arm] Automatic Cuff Blood Pressure Position [Right Arm] Sitting 02 Sat by Pulse Oximetry 99 - Lab Data Lab results reviewed: Yes: I reviewed the patient's lab results. Orders (Tests/Meds): ORDERS Category Date Time Status Full Resp Panel w/COVID ([facility]) Routine Lab 08/22/21 09:41 Received [facility] [place] HPI - General Stated complaint: runny nose, congestion Time Seen by Provider: 08/22/21 10:12 Mode of Arrival: Family Vehicle Description of Symptoms (Recalled from Triage Doc. by RN): pt states that Sat morning she woke up with a sore throat, cough, bilateral ear pain, and body aches. Says her daughter started showing symptoms first. HEENT Symptoms (Recalled from RN notes): Yes Resp Symptoms (Recalled from RN notes): Yes Skin Symptoms (Recalled from RN notes): No MS Symptoms (Recalled from RN notes): No Functional Status (Recalled from RN notes): wnl - History of Present Illness Provider Complaint: Patient states that she woke up this morning with runny nose, cough and pain in both ears States that daughter is having similar symptoms and she was sure if they may have a cold or strep throat - Related Data Home Medications Medication Instructions Recorded Confirmed losartan 25 mg tablet 25 mg PO DAILY 04/08/19 06/28/21 phentermine 37.5 mg capsule 37.5 mg PO DAILY 05/25/21 06/28/21 Previous Rx's Medication Instructions Recorded cetirizine 10 mg capsule 10 mg PO DAILY #30 cap 09/26/19 nystatin 100,000 unit/gram topical 1 applic TOPICAL TID #60 g 07/13/20 powder fluconazole 150 mg tablet 150 mg PO .QOD #15 tab
[2021-08-22 10:29] LABS: UTC Strep Screen (Rapid) Negative (Negative)
[2021-08-22 10:40] VITALS: BP 149/91; PULSE 87; RESP 19; TEMP 36.8
== END 2021-08-22 10:41 | disposition home or self-care (01) ==
PROVIDERS: Emergency Provider Nurse Practitioner; PCP Physician Assistant
DX: J06.9 Acute upper respiratory infection, unspecified (principal); I10 Essential (primary) hypertension; F41.9 Anxiety disorder, unspecified; E03.9 Hypothyroidism, unspecified; Z88.0 Allergy status to penicillin
CPT/HCPCS: 87581; 87632; 87798; 87880; 99203; C9803; G0463; U0003; U0005

== ENCOUNTER → 2021-09-25 13:09 | Outpatient (CLI) | payer OTHER, SELFPAY | PROVIDERS: PCP Physician Assistant; Visit Provider Nurse Practitioner | DX: Z20.822 Contact with and (suspected) exposure to COVID-19 (principal) | CPT/HCPCS: C9803; U0003; U0005 ==

== ENCOUNTER → 2021-10-04 08:04 | Outpatient (CLI) | payer OTHER, SELFPAY ==
--- NOTE | 2021-10-04 | CA_ITS ---
APPROVED REPORT Exam: Pharmacologic Technologist: Marisela Hernandez Ht: 5 ft 7 in Wt: 355 lbs BSA: 2.58 m2 HR: 76 bpm BP: 156/90 mmHg Indications: Chest pain Medical History Medications: Albuterol,,,,, Ibuprofen,,,,, CetIRIZINE,,,,, KETOconazole,,,,, NYstatin,,,,, Phentermine,,,,, BenzONATe,,,,, BiFIclobactenium Infantis,,,,, Stress Test Details Test: LEXISCAN HR Resting HR: 81 bpm Max Heart Rate (APMHR): 188.900181 bpm Max HR Achieved: 118 bpm Target HR (85% APMHR): 159.216666 bpm % of APMHR: 62.77 Recovery HR: 80 bpm BP Resting BP: 156.0/90.0 mmHg Max BP: 156.0/90.0 mmHg Recovery BP: 155.0/89.0 mmHg ECG Resting ECG: Normal sinus rhythm, PVC Clinical Exercise duration: 04:11 min Highest Stage Achieved: Stress ECG Conclusion Symptoms: Chest pressure, shortness of air. No chest pain. Arrhythmias/Ectopy: Rare PVC ST-T Changes: NS T wave changes. Conclusion: Non-diagnostic Lexiscan stress. Myoivew images reported separately. Test Summary REST . . . . . . . Resting REST 03:15 . . 81 . 156/ 90 . . Stage 1 . . . . . . . Myoview Injected Stage 1 01:00 . . 109 . . . . Stage 2 01:00 . . 96 . . . . Stage 3 01:00 . . 88 . 148/ 98 . . Stage 4 01:00 . . 82 . . . . Stage 4 01:11 . . 84 . 127/ 85 . Stop exercise at 04:11 RECOVERY . . . . . . . chest tightness RECOVERY 01:00 . . 82 . . . . RECOVERY 02:00 . . 79 . . . . RECOVERY 03:00 . . 87 . 149/ 86 . . RECOVERY 04:00 . . 85 . 149/ 86 . . RECOVERY 05:00 . . 77 . 149/ 86 . . RECOVERY 05:28 . . 80 . 155/ 89 . . Electronically signed by : Enrico Zhong MD 10/04/2021 19:52:20
--- NOTE | 2021-10-04 08:04 | NM_ITS ---
APPROVED REPORT Exam: Nuclear Stress Test Indication: FM HX, C.P., SOB, PALPATATIONS, FATIGUE Patient Location: Outpatient Stress Tech: Marisela Hernandez ID Tech:Arielle Bonilla BETTYBrandy RT (R)(N)(M) Ht: 5 ft 1 in Wt: 340 lbs Bra Size: 44D HR: 76 bpm BP: 156/90 mmHg BSA: 2.37 m2 BMI: 64.2 History: FM HX, C.P., SOB, PALPATATIONS, FATIGUE Procedure: Patient received a 0.4 mg of intravenous Lexiscan, resting heart rate 76 bpm, resting blood pressure 156/90 mmHg, with Lexiscan maximum heart rate achived was 109 bpm which is Less than 85 % of the maximum predicted heart rate and blood pressure was 148/98 mmHg. With Lexiscan, patient denied any complaint of chest pain. Electrocardiogram Resting electrocardiogram showed sinus rhythm, with Lexiscan there is less than 1.[address] segment depression noted from the baseline EKG. The EKG portion of the Lexiscan is nondiagnostic. Cardiac Stress and Resting SPECT Images: Cardiac Stress and Resting SPECT images were obtained using technetium 99m Myoview 31.1 mCi stress and 10.25 mCi at rest. Gated SPECT for analysis of segmental wall motion and calculation of the ejection fraction also done. Cardiac stress and rest SPECT images show mild fixed defect in the anterior wall with normal contractility gated SPECT is likely secondary to soft tissue attenuation, no reversible ischemia seen, computer derived ejection fraction is 58% with no regional wall motion abnormality, right ventricle is normal size and contractility. Conclusion: 1. The EKG portion of the Lexiscan is nondiagnostic. 2. No scintigraphic evidence of reversible ischemia seen, computer derived ejection fraction is 58% with no regional wall motion abnormality, right ventricle is normal size and contractility. 3. Likely normal Lexiscan Myoview study. Electronically signed by : Enrico Zhong MD 10/04/2021 19:59:39
--- NOTE | 2021-10-04 09:44 | CA_ITS ---
APPROVED REPORT EXAM: Comprehensive 2D, Doppler, and color-flow Echocardiogram [employer] Civil Engineer: Maribell Allan CRT Ht: 5 ft 1 in Wt: 355lbs BSA: 2.41 BP: 136/88 mmHg Indications: Chest Pain, Obesity, Hypertension/HDD 2D Dimensions LVOT 1.94 cm (M/F) 1.5-2.5 LA Volume 50.00 mL LA Volume Index 19.40 mL/m2 (M/F) 16-34 M-Mode Dimensions RVDd 3.37 cm (0.9-2.6) LA Diam 3.91 cm (1.9-4.0) LVDd 4.78 cm (3.5-5.7) Ao Diam 3.55 cm (2.0-3.7) LVDs 3.37 cm (3.5-5.7) IVSd 1.48 cm (0.6-1.1) PWd 0.52 cm (0.6-1.1) EF (Teich) 56.40% FS 29.50% EDV (Teich) 106.50 mL TAPSE 1.96 (<1.7) ESV (Teich) 46.40 mL LV Diastology E Decel Time 173.00 (160-240 msec) E/A Ratio 1.70 MED E' 9.00 (< 7 cm/sec) MED A' 4.60 cm/s E'/MED E' Ratio 11.03 (>14) LAT E' 12.60 (<10 cm/sec) LAT A' 8.30 cm/s E/LAT E' Ratio 7.88 (>14) Aortic Valve LVOT Max 162.00 (70-110 cm/s) LVOT VTI 33.49 cm AoV Peak Jak. 201.00 (50-130 cm/s) AI PHT 460.00 ms AO Peak GR. 16.20 mmHg AO Mean GR. 8.70 (<5 mmHg) AO VTI 39.00 (18-25 cm) DULCE (VTI) 2.54 (2.5-4.5 cm2) Mitral Valve MV E Max Jak. 99.00 (40-130 cm/s) MV A Velocity 58.00 (40-130 cm/s) E/A Ratio 1.70 MV Decel. Time 173.00 (160-240 ms) MV PHT 51.00 ms Pulmonary Valve PV Peak Velocity 108.00 (50-150 cm/s) Tricuspid Valve TR P. Velocity 213.00 cm/s RAP Estimate 10.00 mmHg RVSP 28.20 mmHg Left Ventricle Left atrium is normal size, left ventricle is normal size, visually estimated ejection fraction 55% with no regional wall motion abnormality, diastolic parameters are within normal range. Right Ventricle Right atrium is normal size, right ventricle is mildly enlarged with normal contractility. Aortic Valve Aortic valve morphology is not well visualized, aortic outflow velocity is very mildly increased, does not complain of significant aortic stenosis, there is trace aortic insufficiency. Mitral Valve Mitral valve grossly normal, there is trace mitral regurgitation. Tricuspid Valve Tricuspid valve grossly normal, there is trace tricuspid regurgitation, tricuspid regurgitation jet velocity is inadequate for calculation of the right ventricular systolic pressure. Pulmonic Valve Pulmonic valve is poorly visualized. Great Vessels Aortic root is normal size. Inferior vena cava is normal size with normal inspiratory collapse. Pericardium No significant pericardial effusion noted. Conclusion 1. Normal left ventricular size, preserved left ventricular systolic function, visually estimated ejection fraction 55% with no regional wall motion abnormality, diastolic parameters are within normal range. 2. Mildly enlarged right ventricle with normal contractility. 3. Aortic valve morphology is not well visualized, there is mildly increased aortic outflow velocity, does not represent significant aortic stenosis, there is trace aortic insufficiency. 4. Trace mitral and tricuspid regurgitation. 5. No significant pericardial effusion noted. 6. Inferior vena cava is normal size with normal inspiratory collapse. Electronically signed by : Enrico Zhong MD 10/04/2021 19:40:21
== END ==
PROVIDERS: PCP Physician Assistant; Visit Provider Nurse Practitioner Family
DX: R07.9 Chest pain, unspecified (principal)
CPT/HCPCS: 78452; 93017; 93306; A9502; J2785

== ENCOUNTER 2021-11-26 12:26 | Emergency (ER) | payer OTHER, SELFPAY ==
[2021-11-26 13:00] VITALS: BP 150/97; PULSE 95; RESP 16; TEMP 37; O2SAT 97; BMI 64.2
--- NOTE | 2021-11-26 13:15 | HMH.EDUTC ---
[facility] – [place] Disposition Clinical Impression: Otitis media Qualifiers: Otitis media type: unspecified Laterality: right Qualified Code(s): H66.91 - Otitis media, unspecified, right ear Disposition: Home, Self-Care Condition on Discharge: Good Instructions: Middle Ear Infection, Middle Ear Infections (Alternative Therapy), Cephalexin Additional Instructions: *Monitor Temp, Over the counter Motrin or Tylenol as directed/as needed Tylenol every 4 hours and Motrin every 6 hours (as long as your family doctor has told you that you can take it) for fever or pain. and straight to ER if unable to lower temp less than 101.0 after medication given *Warm salt water gargles may help to soothe the throat *Throat Lozenges *Warm fluids like tea with honey may help to soothe the throat *Sleep elevated *Humidifier/Vaporizer Take medication as prescribed Follow up IMMEDIATELY for new or worsening symptoms or no Noticeable improvement over the next 48-72 hours. 911 for difficulty breathing or swallowing Prescriptions: cephALEXin [cephALEXin 500mg capsule*] 500 mg PO Q12H #20 cap Transmission Status: Pending to [facility] Referrals: Ashlie Marcelino PA [Primary Care Provider] - As needed Time of Disposition: 13:26 Medical Decision Making - Michael Inquiry Pt receiving controlled substance: No Michael was queried for this patient: No Vital Signs: 11/26/21 13:00 Temperature 98.6 F Temperature Source Oral Pulse Rate [Left] 95 H Respiratory Rate 16 Blood Pressure [Right Arm] 150/97 H Blood Pressure Mean [Right Arm] 114 02 Sat by Pulse Oximetry 97 Medical Decision Narrative: Patient states that she is allergic to PCN but has taken Cephalexin in the past without reaction or complications [facility] [place] HPI - General Stated complaint: cough Time Seen by Provider: 11/26/21 13:15 Mode of Arrival: Ambulatory Source of Information: Patient Limitations: No Limitations Description of Symptoms (Recalled from Triage Doc. by RN): pt c/o a cough, bilateral ear aches with ringing, and nausea x5 days. HEENT Symptoms (Recalled from RN notes): Yes Resp Symptoms (Recalled from RN notes): Yes Skin Symptoms (Recalled from RN notes): No MS Symptoms (Recalled from RN notes): No Functional Status (Recalled from RN notes): wnl - History of Present Illness Provider Complaint: Patient states that she has been having bilateral ear pain, cough and nasal congestion States that she feels like her ears are full and has ringing at times States today her ears was hurting worse so she came in - Related Data Previous Rx's Medication Instructions Recorded nystatin 100,000 unit/gram topical 1 applic TOPICAL TID #60 g 07/13/20 powder albuterol sulfate 90 mcg/actuation See Rx Instructions .ROUTE 04/10/21 aerosol inhaler .COMPLEX #18 inhaler ketoconazole 2 % topical cream 1 applic TOPICAL BID 30 Days #60 g 05/03/21 fluticasone propionate 50 1 spray INTRANASAL DAILY #16 g 08/30/21 mcg/actuation nasal spray,suspension irbesartan 150 1 tab PO DAILY #30 tab 10/12/21 mg-hydrochlorothiazide 12.5 mg tablet metoprolol succinate 25 mg 25 mg PO DAILY #30 tab 10/12/21 tablet,extended release 24 hr fluconazole 150 mg tablet 150 mg PO .QOD #15 tab 11/16/21 ibuprofen 800 mg tablet 800 mg PO TIDP PRN #60 tab 11/16/21 cephALEXin [cephALEXin 500mg 500 mg PO Q12H #20 cap 11/26/21 capsule*] Allergies Allergy/AdvReac Type Severity Reaction Status Date / Time acetaminophen [From TYLENOL] Allergy Mild upsets her Verified 10/12/21 13:28 stomach penicillin G Allergy Mild Verified 10/12/21 13:28 codeine Allergy Verified 11/26/21 13:03 methylprednisolone Allergy Verified 11/26/21 13:03 [From Medrol] - Worker's Comp Is this a Worker's Comp case?: No [facility] History - Hepatitis A Screen Drug use history?: No High risk sexual behaviors?: No History of sexually transmitted infection?: No 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
[2021-11-26 13:34] VITALS: BP 150/97; PULSE 95; RESP 16; TEMP 37
== END 2021-11-26 13:36 | disposition home or self-care (01) ==
PROVIDERS: Emergency Provider Nurse Practitioner; PCP Physician Assistant
DX: H66.91 Otitis media, unspecified, right ear (principal); F41.9 Anxiety disorder, unspecified; I10 Essential (primary) hypertension; Z88.0 Allergy status to penicillin; Z88.5 Allergy status to narcotic agent; Z79.899 Other long term (current) drug therapy
CPT/HCPCS: 99212; G0463

== ENCOUNTER → 2021-12-27 12:10 | Outpatient (CLI) | payer OTHER, SELFPAY | PROVIDERS: PCP Physician Assistant; Visit Provider Physician Assistant | DX: M54.9 Dorsalgia, unspecified (principal); M54.50 Low back pain, unspecified | CPT/HCPCS: 87086 ==

== ENCOUNTER 2022-05-23 09:42 | Emergency (ER) | payer OTHER, SELFPAY ==
[2022-05-23 10:30] VITALS: BP 138/92; PULSE 91; RESP 22; TEMP 36.9; O2SAT 98; BMI 41.6
--- NOTE | 2022-05-23 11:01 | EXP.UTC ---
Discharge Plan Disposition Patient Disposition: Home, Self-Care Condition: Good Prescriptions Prescriptions: New prednisone 20 mg tablet 20 mg PO BID Qty: 10 0RF azithromycin [Zithromax Z-Zion] 250 mg tablet 250 mg PO DAILY 6 Days Qty: 6 0RF Rx Instructions: 2 tabs (500mg) on day one then 1 tab (250mg) on day 2-5 benzonatate 100 mg capsule 100 mg PO TID PRN (Reason: cough) Qty: 20 0RF No Action fluticasone propionate [Flonase Allergy Relief] 50 mcg/actuation spray,suspension 1 spray INTRANASAL DAILY Qty: 16 2RF Rx Instructions: administer into each nostril irbesartan-hydrochlorothiazide 150-12.5 mg tablet 1 tab PO DAILY Qty: 30 3RF metoprolol succinate [Toprol XL] 25 mg tablet extended release 24 hr 25 mg PO DAILY Qty: 30 3RF nystatin 100,000 unit/gram powder 1 applic TOPICAL TID Qty: 60 2RF tramadol 50 mg tablet 50 mg PO Q8H PRN (Reason: pain) Qty: 60 0RF cyclobenzaprine 10 mg tablet 10 mg PO Q8H PRN (Reason: muscle spasm) Qty: 90 0RF prednisone 20 mg tablet 20 mg PO DAILY Qty: 18 0RF Rx Instructions: TID X 3 days, BID X 3 days, QD X 3 days naproxen [EC-Naproxen] 500 mg tablet,delayed release (DR/EC) 500 mg PO BID Qty: 60 0RF fluconazole [Diflucan] 150 mg tablet 150 mg PO .QOD Qty: 15 3RF albuterol sulfate 90 mcg/actuation HFA aerosol inhaler See Rx Instructions .ROUTE .COMPLEX Qty: 18 2RF Dose Instruction: INHALE 2 PUFFS BY MOUTH EVERY 6 HOURS *USE WITH SPACER* Rx Instructions: INHALE 2 PUFFS BY MOUTH EVERY 6 HOURS *USE WITH SPACER* ibuprofen 800 mg tablet See Rx Instructions .ROUTE .COMPLEX Qty: 60 0RF Dose Instruction: TAKE ONE TABLET BY MOUTH 3 TIMES A DAY NEEDED FOR MODERATE PAIN Rx Instructions: TAKE ONE TABLET BY MOUTH 3 TIMES A DAY NEEDED FOR MODERATE PAIN Lice Killing 0.33-4 % shampoo 1 applic TP ONCE Qty: 118 0RF Referrals Follow up/Referrals: Stone,Ashlie Sabillon, PA [Primary Care Provider] - See instructions Activity Restrictions/Add. Instructions Additional Instructions/Restrictions: Start antibiotic today. Be sure to complete entire prescription even if feeling better Monitor temp. Tylenol every 4 hours as needed and / or ibuprofen every 6 hours as needed ( As long as your primary care physician has told you that it ok to take both. For fever/aches/pains ER if no less than 101 despite Tylenol or Motrin Humidifier/vaporizer or hot steamy shower Inhaler every 4-6 hours as needed like we discussed. If unsure how to use it, ask pharmacist to demonstrate how. Should help open airways and improve cough, wheezing, and shortness of breath Mucinex during the day for your cough and cough suppressant only at night. Be sure to drink lots of water. I *Tessalon Perles will not cause drowsiness but use at bedtime to help stop cough so that you may get some rest. *Start steroid today. Helps with inflammation therefore, cough and wheezing. Follow directions on the package. Reviewed side effects. Patient reports taking them before. Follow up IMMEDIATELY for new or worsening of symptoms OR no noticeable improvement over the next 48-72 hours. 911 immediately for any life threatening symptoms such as chest pain or difficulty breathing Clinical Impressions Clinical Impression: Bronchitis, Sinusitis Instructions Patient Instructions: DI for Sinusitis, Sinusitis, Acute Bronchitis Discharge ED Provider: Kimberly Vera [facility] General Stated complaint: cough,SOA Mode of Arrival: Ambulatory Source of Information: Patient Limitations: No Limitations Time Seen by Provider: 05/23/22 11:01 Description of Symptoms (Recalled from Triage Doc. by RN): PATIENT C/O CHEST CONGESTION, COUGH WITH DARK MUCOUS, SOA, AND DIFFICULTY SLEEPING. REPORTS HAVING COVID 23 DAYS AGO HEENT Symptoms (Recalled from RN notes): No Resp Sympto
[2022-05-23 11:18] VITALS: BP 138/92; PULSE 91; RESP 22; TEMP 36.9; O2SAT 98
== END 2022-05-23 11:24 | disposition home or self-care (01) ==
PROVIDERS: Emergency Provider Nurse Practitioner; PCP Physician Assistant
DX: J40 Bronchitis, not specified as acute or chronic (principal); J32.9 Chronic sinusitis, unspecified
CPT/HCPCS: 99212; G0463

== ENCOUNTER → 2022-07-10 10:05 | Outpatient (CLI) | payer OTHER, SELFPAY ==
[2022-07-10 19:45] LABS: Basophils # 0.1 K/mm3 (0-0.2); Basophils % 0.6 % (0.1-2.0); Eosinophils # 0.3 K/mm3 (0.0-0.4); Eosinophils % 2.2 % (0.1-12.0); Hemoglobin 12.2 g/dL (12.2-16.2); Lymphocytes # 3.1 K/mm3 (0.7-4.5); Lymphocytes % 20.5 % (10-50); Mean Corpuscular HGB Conc 31.4 g/dL (31.8-35.4); Mean Corpuscular Volume 86.1 fl (81-99); Mean Platelet Volume 8.8 fl (7.4-10.4); Monocytes # 0.8 K/mm3 (0.1-1.0); Neutrophils # 10.8 K/mm3 (1.8-7.8); Neutrophils % 71.6 % (37.0-80.0); Platelet Count 453 K/mm3 (142-424); Red Blood Count 4.53 M/mm3 (4.20-5.40); Red Cell Distribution Width 14.8 % (11.5-17.5); White Blood Count 15.1 K/mm3 (4.8-10.8)
[2022-07-10 19:51] LABS: Alanine Aminotransferase 19 U/L (12-78); Albumin Level 3.6 g/dl (3.5-5.0); Albumin/Globulin Ratio 1.2 (1.1-1.8); Alkaline Phosphatase 123 U/L (38-126); Anion Gap 14.8 mEq/L (5-15); Aspartate Amino Transferase 24 U/L (14-36); Bilirubin,Total 0.2 mg/dl (0.2-1.3); Blood Urea Nitrogen 14 mg/dl (7-17); Calcium 8.7 mg/dl (8.4-10.2); Carbon Dioxide 30 mmol/L (22.0-30.0); Chloride 97 mmol/L (98-107); Chol/HDL Ratio 2.8 (1-3.5); Cholesterol 145 mg/dl (140-200); Estimated Glomerular Filt Rate 96 ml/min (>60); GFR (African American) 117 ML/MIN (>60); Glucose 99 mg/dl (74-100); HDL Cholesterol 52 mg/dl (40-60); MANUAL DIFFERENTIAL MANUAL DIFFERENTIAL (MANUAL DIFF); Potassium 3.8 mmoL/L (3.5-5.1); Sodium 138 mmol/L (136-145); Total Protein,Serum 6.6 g/dl (6.3-8.2); Triglycerides 109 mg/dl (30-150); VLDL Cholesterol 22 mg/dL (0-40)
[2022-07-10 20:02] LABS: Direct LDL Cholesterol 67.29 mg/dL (100-129)
[2022-07-10 20:10] LABS: 25-OH Vitamin D, Total < 12.8 ng/mL (30-100)
[2022-07-10 20:21] LABS: Thyroid Stimulating Hormone 3.01 uIU/mL (0.465-4.68)
[2022-07-11 00:41] LABS: Hypochromasia 1+; Lymphocytes % 12 % (10-50); Monocytes % 3 % (2-9); Neutrophils % 85 % (42-76); Platelet Estimate Normal; Total Cells Counted 100
[2022-07-12 13:18] LABS: Hemoglobin A1C 5.5 % (4.0-6.0)
== END ==
PROVIDERS: PCP Student in an Organized Health Care Education/Training Program; Visit Provider Student in an Organized Health Care Education/Training Program
DX: M54.9 Dorsalgia, unspecified (principal); R20.0 Anesthesia of skin; R53.83 Other fatigue; R73.09 Other abnormal glucose; E55.9 Vitamin D deficiency, unspecified
CPT/HCPCS: 80053; 80061; 82306; 83036; 84443; 85007; 85025; 87086

== ENCOUNTER → 2022-07-17 13:40 | Outpatient (CLI) | payer OTHER, SELFPAY ==
[2022-07-17 19:43] LABS: Basophils # 0.1 K/mm3 (0-0.2); Basophils % 0.8 % (0.1-2.0); Eosinophils # 0.5 K/mm3 (0.0-0.4); Eosinophils % 2.8 % (0.1-12.0); Hematocrit 40.7 % (37.0-47.0); Hemoglobin 12.7 g/dL (12.2-16.2); Lymphocytes # 3.2 K/mm3 (0.7-4.5); Lymphocytes % 19.6 % (10-50); Mean Corpuscular HGB Conc 31.2 g/dL (31.8-35.4); Mean Corpuscular Volume 86.7 fl (81-99); Monocytes # 0.9 K/mm3 (0.1-1.0); Monocytes % 5.7 % (1.7-9.3); Neutrophils # 11.7 K/mm3 (1.8-7.8); Neutrophils % 71.2 % (37.0-80.0); Platelet Count 518 K/mm3 (142-424); Red Blood Count 4.69 M/mm3 (4.20-5.40); Red Cell Distribution Width 14.7 % (11.5-17.5); White Blood Count 16.4 K/mm3 (4.8-10.8)
[2022-07-17 19:46] LABS: MANUAL DIFFERENTIAL MANUAL DIFFERENTIAL (MANUAL DIFF)
[2022-07-17 21:40] LABS: Eosinophils % 4 % (0-3); Lymphocytes % 22 % (10-50); Monocytes % 6 % (2-9); Neutrophils % 68 % (42-76); Total Cells Counted 100
[2022-07-17 21:41] LABS: Platelet Estimate Normal; RBC Morphology Normal
== END ==
PROVIDERS: PCP Student in an Organized Health Care Education/Training Program; Visit Provider Student in an Organized Health Care Education/Training Program
DX: R53.83 Other fatigue (principal)
CPT/HCPCS: 85007; 85025

== ENCOUNTER 2022-07-19 16:55 | Outpatient (RCR) | payer OTHER, SELFPAY ==
--- NOTE | 2022-07-19 18:03 | HMH.PTOPEV ---
PT Outpatient Evaluation Rehab PT Outpatient Evaluation Start: 07/19/22 17:45 Freq: Status: Active Protocol: Document 07/19/22 17:45 FLOYD (Rec: 07/19/22 18:01 CRYSTALALMA [id number]) E-signed By Rubens Pennington, PT Outpatient Therapy Subjective History Subjective History This is the initial Physical Therapy evaluation for Rosa Elena Fox. Pt is a 32 y/o female referred to PT for c/o LBP. Pt rpeorts a long history of LBP but reports mostly intermittant and tolerable. Pt rpeorts insidious increase in frequency, duration and intensity of pain in thoraco- lumbar area in the last few months. Pt notes increased pain R>L and sharp shooting pain up the right side Chief Complaint Pain,Spasms,Stiff Symptom Type Ache,Throb,Sharp,Dull,Stabbing ,Shooting Symptoms Relieved By Nothing Symptoms Aggravated By Sitting,Standing,Bending/ Stooping,Physical Activity, Twisting,Walking,Lifting Prior Functional Limitations None Current Functional Limitations Lifting,Housework,Desk Work/ Reading,Driving,Sleeping, Standing,Sitting,Recreation Activity,Walking,Bending/ Stooping Symptom Description Constant but Variable Level of pain today (0-10) 7 Pain scale - at its best (0-10) 6 Pain scale - at its worst (0-10) 9 Lumbopelvic Eval Posture Thoracic Spine Posture Standing Position Flattened Lumbar Spine Posture Standing Position Increased Lordosis Assistive device Assistive Devices None / NA Palapation tenderness bilateral thoracic spinal tenderness Yes: R>L lumbar spinal tenderness Yes: R>L paraspinal tenderness Yes: R>L buttock tenderness Yes: R>L piriformis Lumbar/Sacral Palpation Findings Tenderness,Muscle Guarding Accessory Movement L-spine Vertebrae Accessory Movements Central P/A [place] that Elicit Symptoms L2 bilateral L3 bilateral L4 bilateral L5 bilateral S1 bilateral Range of Motion Lumbar Spine Active Flexion Range of WFL Motion (degrees) Lumbar Spine Active Extension Range of WFL
== END 2022-07-19 16:59 | disposition home or self-care (01) ==
LOC: PT 16:55
PROVIDERS: PCP Physician Assistant; Visit Provider Student in an Organized Health Care Education/Training Program
DX: M54.9 Dorsalgia, unspecified (principal); M54.50 Low back pain, unspecified
CPT/HCPCS: 97110; 97163

== ENCOUNTER 2022-08-17 20:48 | Emergency (ER) | payer OTHER, SELFPAY ==
--- NOTE | 2022-08-17 21:51 | ECG_ITS ---
APPROVED REPORT Exam: Resting ECG HR:103 bpm ECG Measurements Heart Rate 103 AXES CA 140 P 63 QRSd 89 QRS 56 QT 323 T 45 QTc 383 Conclusion SINUS TACHYCARDIA LOW QRS VOLTAGE IN PRECORDIAL LEADS [QRS DEFLECTION < 1.0 mV IN CHEST LEADS] ABNORMAL RHYTHM ECG UNCONFIRMED REPORT Electronically signed by : Salvatore Arzola MD 08/18/2022 12:10:46
--- NOTE | 2022-08-17 21:54 | XR_ITS ---
PROCEDURE INFORMATION: Exam: XR Chest Exam date and time: 08/17/2022 10:29 PM Age: 32 years old Clinical indication: Patient HX: SOA. Cough. Chills. Sore throat TECHNIQUE: Imaging protocol: Radiologic exam of the chest. Views: 2 views. COMPARISON: CR XR RIBS LT MIN 3V W CXR1V 04/14/2020 9:28 AM FINDINGS: Lungs: Mild underinflation. No definite consolidation. Probable calcified granuloma within RIGHT upper lobe. Pleural spaces: No significant pleural effusion. No pneumothorax. Heart/Mediastinum: No cardiomegaly. Bones/joints: No displaced fracture. Soft tissues: Unremarkable. IMPRESSION: No definite acute cardiopulmonary disease. If symptoms persist, consider CT for further evaluation.
[2022-08-17 22:00] VITALS: BP 142/76; PULSE 96; O2SAT 100
[2022-08-17 22:04] LABS: Microscopic, Urine URINE MICROSCOPIC (MICROSCOPIC)
[2022-08-17 22:06] LABS: Coronavirus 19, PCR Not Detected (NotDetected); Influenza B, PCR Not Detected (NotDetected)
[2022-08-17 22:29] LABS: Urine Pregnancy, HCG Qual. Negative (Negative)
[2022-08-17 22:30] LABS: Appearance,Urine CLEAR (Clear); Bilirubin,Urine Negative (Negative); Blood, Urine Negative (Negative); Color,Urine YELLOW (Yellow); Glucose,Urine (UA) Negative (Negative); Ketones,Urine Negative (Negative); Leukocyte Esterase,Urine Negative (Negative); Nitrate,Urine Negative (Negative); Protein,Urine Negative (Negative); Specific Gravity, Urine 1.025 (1.005-1.030); Urobilinogen,Urine 0.2 EU/dl (0.2)
[2022-08-17 22:33] LABS: Bacteria,Urine Trace /lpf; Mucus,Urine Trace /lpf
[2022-08-17 22:34] LABS: Strep Scrn Group A (Rapid) Negative (Negative)
[2022-08-17 22:38] VITALS: BP 156/82; PULSE 104; RESP 18; TEMP 38.1; O2SAT 100; BMI 68.0
[2022-08-17 23:00] VITALS: BP 140/76; PULSE 93; O2SAT 100
[2022-08-17 23:31] VITALS: BP 130/88; PULSE 109; O2SAT 100
[2022-08-17 23:41] LABS: Influenza A, PCR Detected (NotDetected)
--- NOTE | 2022-08-18 00:26 | HMH.EDURI ---
Discharge Plan Disposition Patient Disposition: Home, Self-Care Prescriptions Prescriptions: New oseltamivir [Tamiflu] 75 mg capsule 75 mg PO BID 5 Days Qty: 10 0RF oseltamivir [Tamiflu] 75 mg capsule 75 mg PO BID 5 Days Qty: 10 0RF No Action fluticasone propionate [Flonase Allergy Relief] 50 mcg/actuation spray,suspension 1 spray INTRANASAL DAILY Qty: 16 2RF Rx Instructions: administer into each nostril duloxetine 30 mg capsule,delayed release(DR/EC) 30 mg PO DAILY Qty: 30 1RF irbesartan-hydrochlorothiazide 150-12.5 mg tablet 1 tab PO DAILY Qty: 30 3RF metoprolol succinate [Toprol XL] 25 mg tablet extended release 24 hr 25 mg PO DAILY Qty: 30 3RF cyclobenzaprine 10 mg tablet 10 mg PO Q8H PRN (Reason: muscle spasm) Qty: 90 0RF naproxen [EC-Naproxen] 500 mg tablet,delayed release (DR/EC) 500 mg PO BID Qty: 60 0RF albuterol sulfate 90 mcg/actuation HFA aerosol inhaler See Rx Instructions .ROUTE .COMPLEX Qty: 18 2RF Dose Instruction: INHALE 2 PUFFS BY MOUTH EVERY 6 HOURS *USE WITH SPACER* Rx Instructions: INHALE 2 PUFFS BY MOUTH EVERY 6 HOURS *USE WITH SPACER* ibuprofen 800 mg tablet See Rx Instructions .ROUTE .COMPLEX Qty: 60 0RF Dose Instruction: TAKE ONE TABLET BY MOUTH 3 TIMES A DAY NEEDED FOR MODERATE PAIN Rx Instructions: TAKE ONE TABLET BY MOUTH 3 TIMES A DAY NEEDED FOR MODERATE PAIN cholecalciferol (vitamin D3) 25 mcg (1,000 unit) capsule 25 mcg PO DAILY Qty: 90 0RF azithromycin [Zithromax Z-Zion] 250 mg tablet See Rx Instructions PO .COMPLEX Qty: 6 0RF Rx Instructions: For 250 mg dose pack: take 500 mg today (day 1), then 250 mg for 4 days (days 2-5) PO cephalexin 500 mg capsule 500 mg PO TID 10 Days Qty: 30 0RF erythromycin 5 mg/gram (0.5 %) ointment 0.5 inch ophthalmic (eye) BID Qty: 3.5 0RF azithromycin [Zithromax Z-Zion] 250 mg tablet See Rx Instructions PO .COMPLEX Qty: 6 0RF Rx Instructions: For 250 mg dose pack: take 500 mg today (day 1), then 250 mg for 4 days (days 2-5) PO methylprednisolone [Medrol (Zino)] 4 mg tablets,dose pack See Rx Instructions PO PER PKG DIR Qty: 21 0RF Rx Instructions: PO PER PKG DIR Referrals Follow up/Referrals: Provider,Referral, [Primary Care Provider] - See instructions Clinical Impressions Clinical Impression: Influenza A Instructions Patient Instructions: DI for Influenza -- Adult Discharge ED Provider: Silverio Tavera URI/Sore Throat HPI General Chief Complaint: Upper Respiratory Infection Stated Complaint: SOB Time Seen by Provider: 08/18/22 00:26 Mode of Arrival: Ambulatory Source of Information: Patient and Medical Record Limitations: No Limitations Description of Symptoms (Recalled from ER Triage Doc. by RN): pt c/o soa for prior two hours. States that it started at work tonight so she had to leave. Also c/o chest tightness, cough, ear pain and sore throat for several days. History of Present Illness HPI Narrative: pt with exposure to flu with increased sx tonight despite inhaler - pt with chest tightness and cough and sore throat Complaint: fever and cough Onset (ago): day(s) Duration: intermittent Severity: moderate Able to tolerate fluids by mouth: Yes Associated symptoms: myalgias Treatments prior to arrival: acetaminophen and ibuprofen Related Data Previous Rx's Medication Instructions Recorded fluticasone propionate 50 1 spray intranasal DAILY #16 grams 08/30/21 mcg/actuation nasal spray,suspension (Flonase Allergy Relief) irbesartan 150 1 tab PO DAILY #30 tabs 10/12/21 mg-hydrochlorothiazide 12.5 mg tablet metoprolol succinate 25 mg 25 mg PO DAILY #30 tabs 10/12/21 tablet,extended release 24 hr (Toprol XL) albuterol sulfate 90 mcg/actuation See Rx Instructions .Route 02/22/22 aerosol inhaler .COMPLEX ##18 ibuprofen 800 mg tablet See Rx Instructions .Route 03/22/22 .COMPLEX
[2022-08-18 00:40] VITALS: BP 135/80; PULSE 80; RESP 20; TEMP 36.7; O2SAT 98
== END 2022-08-18 00:57 | disposition home or self-care (01) ==
PROVIDERS: Emergency Provider Emergency Medicine
DX: J10.1 Influenza due to other identified influenza virus with other respiratory manifestations (principal); Z88.0 Allergy status to penicillin; Z88.6 Allergy status to analgesic agent; J45.909 Unspecified asthma, uncomplicated; I10 Essential (primary) hypertension; E03.9 Hypothyroidism, unspecified; G43.909 Migraine, unspecified, not intractable, without status migrainosus
CPT/HCPCS: 71046; 81001; 81025; 87430; 93005; 94640; 99285; C9803; U0003; U0005

== ENCOUNTER → 2022-10-22 11:31 | Outpatient (CLI) | payer OTHER, SELFPAY ==
[2022-10-22 13:34] LABS: Basophils # 0.1 K/mm3 (0-0.2); Basophils % 0.6 % (0.1-2.0); Eosinophils # 0.3 K/mm3 (0.0-0.4); Eosinophils % 1.8 % (0.1-12.0); Hematocrit 38.3 % (37.0-47.0); Hemoglobin 12.8 g/dL (12.2-16.2); Lymphocytes # 2.9 K/mm3 (0.7-4.5); Lymphocytes % 18.8 % (10-50); Mean Corpuscular HGB Conc 33.4 g/dL (31.8-35.4); Mean Corpuscular Hemoglobin 27.7 pg (27.0-31.2); Mean Platelet Volume 8.5 fl (7.4-10.4); Monocytes # 0.7 K/mm3 (0.1-1.0); Monocytes % 4.2 % (1.7-9.3); Neutrophils # 11.5 K/mm3 (1.8-7.8); Neutrophils % 74.6 % (37.0-80.0); Platelet Count 513 K/mm3 (142-424); Red Blood Count 4.62 M/mm3 (4.20-5.40); Red Cell Distribution Width 15.1 % (11.5-17.5); White Blood Count 15.5 K/mm3 (4.8-10.8)
[2022-10-22 13:36] LABS: MANUAL DIFFERENTIAL MANUAL DIFFERENTIAL (MANUAL DIFF)
[2022-10-22 14:09] LABS: Eosinophils % 3 % (0-3); Lymphocytes % 16 % (10-50); Monocytes % 7 % (2-9); Neutrophils % 74 % (42-76); Platelet Estimate Slight Increase; RBC Morphology Normal; Total Cells Counted 100
[2022-10-22 14:20] LABS: Alanine Aminotransferase 20 U/L (12-78); Albumin Level 4.2 g/dl (3.5-5.0); Albumin/Globulin Ratio 1.3 (1.1-1.8); Alkaline Phosphatase 95 U/L (38-126); Anion Gap 10.9 mEq/L (5-15); Aspartate Amino Transferase 25 U/L (14-36); Bilirubin,Total 0.4 mg/dl (0.2-1.3); Blood Urea Nitrogen 13 mg/dl (7-17); Calcium 8.5 mg/dl (8.4-10.2); Carbon Dioxide 29 mmol/L (22.0-30.0); Chloride 101 mmol/L (98-107); Chol/HDL Ratio 2.8 (1-3.5); Cholesterol 134 mg/dl (140-200); Estimated Glomerular Filt Rate 142 ml/min (>60); GFR (African American) 172 ML/MIN (>60); Globulin 3.2 g/dL (1.3-3.2); Glucose 91 mg/dl (74-100); HDL Cholesterol 48 mg/dl (40-60); Potassium 3.9 mmoL/L (3.5-5.1); Sodium 137 mmol/L (136-145); Total Protein,Serum 7.4 g/dl (6.3-8.2); Triglycerides 111 mg/dl (30-150); VLDL Cholesterol 22 mg/dL (0-40)
[2022-10-22 14:32] LABS: Direct LDL Cholesterol 71.12 mg/dL (100-129)
[2022-10-22 14:39] LABS: 25-OH Vitamin D, Total 18.9 ng/mL (30-100)
[2022-10-22 14:50] LABS: Thyroid Stimulating Hormone 2.48 uIU/mL (0.465-4.68)
[2022-10-22 17:09] LABS: Vitamin B12 365 pg/mL (239-931)
== END ==
PROVIDERS: PCP Physician Assistant; Visit Provider Physician Assistant
DX: E53.8 Deficiency of other specified B group vitamins (principal); E66.01 Morbid (severe) obesity due to excess calories; Z68.44 Body mass index [BMI] 60.0-69.9, adult; Z79.899 Other long term (current) drug therapy
CPT/HCPCS: 80053; 80061; 82306; 82607; 84443; 85007; 85025

== ENCOUNTER → 2022-11-28 10:53 | Outpatient (CLI) | payer OTHER, SELFPAY ==
--- NOTE | 2022-11-28 11:03 | XR_ITS ---
FINAL REPORT CLINICAL HISTORY: back pain tingling down arms and lower back pain FINDINGS: THORACIC SPINE Three views demonstrate no acute fracture. There are moderate degenerative changes with osteophytes. There is no malalignment. IMPRESSION: Moderate degenerative changes. LUMBAR SPINE Five views demonstrate no acute fracture. There are mild degenerative changes with osteophytes. There is no malalignment. IMPRESSION: Mild degenerative changes. Reviewed, Interpreted and Dictated by Brandon Carlton III, MD Transcribed by Obdulia Reyes Authenticated and [facility]
[2022-11-28 12:40] LABS: Alanine Aminotransferase 18 U/L (12-78); Albumin Level 3.9 g/dl (3.5-5.0); Albumin/Globulin Ratio 1.4 (1.1-1.8); Alkaline Phosphatase 97 U/L (38-126); Anion Gap 11.3 mEq/L (5-15); Aspartate Amino Transferase 22 U/L (14-36); Bilirubin,Total 0.4 mg/dl (0.2-1.3); Blood Urea Nitrogen 12 mg/dl (7-17); Calcium 8.3 mg/dl (8.4-10.2); Carbon Dioxide 30 mmol/L (22.0-30.0); Chloride 99 mmol/L (98-107); Chol/HDL Ratio 2.8 (1-3.5); Cholesterol 130 mg/dl (140-200); Estimated Glomerular Filt Rate 142 ml/min (>60); GFR (African American) 172 ML/MIN (>60); Globulin 2.7 g/dL (1.3-3.2); Glucose 83 mg/dl (74-100); HDL Cholesterol 47 mg/dl (40-60); Potassium 4.3 mmoL/L (3.5-5.1); Sodium 136 mmol/L (136-145); Total Protein,Serum 6.6 g/dl (6.3-8.2); Triglycerides 100 mg/dl (30-150); VLDL Cholesterol 20 mg/dL (0-40)
[2022-11-28 12:45] LABS: Basophils # 0.1 K/mm3 (0-0.2); Basophils % 0.9 % (0.1-2.0); Eosinophils # 0.4 K/mm3 (0.0-0.4); Eosinophils % 2.5 % (0.1-12.0); Hematocrit 40.5 % (37.0-47.0); Hemoglobin 12.3 g/dL (12.2-16.2); Lymphocytes # 2.8 K/mm3 (0.7-4.5); Lymphocytes % 20.3 % (10-50); Mean Corpuscular HGB Conc 30.3 g/dL (31.8-35.4); Mean Corpuscular Hemoglobin 25.6 pg (27.0-31.2); Mean Corpuscular Volume 84.5 fl (81-99); Mean Platelet Volume 8.1 fl (7.4-10.4); Monocytes # 0.7 K/mm3 (0.1-1.0); Monocytes % 5.2 % (1.7-9.3); Neutrophils % 71.2 % (37.0-80.0); Platelet Count 475 K/mm3 (142-424); Red Blood Count 4.79 M/mm3 (4.20-5.40); Red Cell Distribution Width 15.1 % (11.5-17.5)
[2022-11-28 12:48] LABS: Total Iron Binding Capacity 356 ug/dL (265-497)
[2022-11-28 12:57] LABS: 25-OH Vitamin D, Total 16.5 ng/mL (30-100)
[2022-11-28 13:11] LABS: Thyroid Stimulating Hormone 1.98 uIU/mL (0.465-4.68)
[2022-11-28 13:30] LABS: Vitamin B12 435 pg/mL (239-931)
[2022-11-28 13:36] LABS: Ferritin 30.6 ng/ml (6.24-137); Iron 43 ug/dL (37-170)
== END ==
PROVIDERS: PCP Physician Assistant; Visit Provider Nurse Practitioner Family
DX: M54.6 Pain in thoracic spine (principal); M54.50 Low back pain, unspecified; M79.604 Pain in right leg; M79.605 Pain in left leg; E03.9 Hypothyroidism, unspecified; E55.9 Vitamin D deficiency, unspecified; E66.01 Morbid (severe) obesity due to excess calories; Z68.44 Body mass index [BMI] 60.0-69.9, adult
CPT/HCPCS: 36415; 72084; 80053; 80061; 82306; 82607; 82728; 83540; 83550; 83735; 84443; 85025

== ENCOUNTER → 2023-05-23 00:07 | Outpatient (CLI) | payer OTHER, SELFPAY ==
[2023-05-22 19:18] LABS: Alanine Aminotransferase 20 U/L (12-78); Albumin Level 3.7 g/dl (3.5-5.0); Albumin/Globulin Ratio 1.2 (1.1-1.8); Alkaline Phosphatase 96 U/L (38-126); Anion Gap 12.1 mEq/L (5-15); Aspartate Amino Transferase 21 U/L (14-36); Bilirubin,Total 0.2 mg/dl (0.2-1.3); Blood Urea Nitrogen 14 mg/dl (7-17); Calcium 8.6 mg/dl (8.4-10.2); Carbon Dioxide 27 mmol/L (22.0-30.0); Chloride 101 mmol/L (98-107); Cholesterol 136 mg/dl (140-200); Estimated Glomerular Filt Rate 96 ml/min (>60); GFR (African American) 116 ML/MIN (>60); Glucose 100 mg/dl (74-100); HDL Cholesterol 46 mg/dl (40-60); Potassium 4.1 mmoL/L (3.5-5.1); Sodium 136 mmol/L (136-145); Total Protein,Serum 6.7 g/dl (6.3-8.2); Triglycerides 97 mg/dl (30-150); VLDL Cholesterol 19 mg/dL (0-40)
[2023-05-22 19:29] LABS: Direct LDL Cholesterol 67.48 mg/dL (100-129)
[2023-05-22 19:32] LABS: Free T4 (Free Thyroxine) 1.41 ng/dl (0.78-2.19)
[2023-05-22 19:36] LABS: 25-OH Vitamin D, Total 12.9 ng/mL (30-100)
[2023-05-22 19:49] LABS: Basophils % 0.3 % (0.1-2.0); Eosinophils # 0.3 K/mm3 (0.0-0.4); Eosinophils % 2.1 % (0.1-12.0); Hematocrit 36.9 % (37.0-47.0); Hemoglobin 11.6 g/dL (12.2-16.2); Lymphocytes # 2.5 K/mm3 (0.7-4.5); Lymphocytes % 18.5 % (10-50); Mean Corpuscular HGB Conc 31.4 g/dL (31.8-35.4); Mean Corpuscular Hemoglobin 25.7 pg (27.0-31.2); Mean Corpuscular Volume 81.8 fl (81-99); Mean Platelet Volume 9.6 fl (7.4-10.4); Monocytes # 0.9 K/mm3 (0.1-1.0); Monocytes % 6.5 % (1.7-9.3); Neutrophils # 9.9 K/mm3 (1.8-7.8); Neutrophils % 72.5 % (37.0-80.0); Platelet Count 425 K/mm3 (142-424); Red Blood Count 4.51 M/mm3 (4.20-5.40); Red Cell Distribution Width 15.7 % (11.5-17.5); White Blood Count 13.7 K/mm3 (4.8-10.8)
[2023-05-22 19:51] LABS: Thyroid Stimulating Hormone 2.49 uIU/mL (0.465-4.68)
[2023-05-22 20:11] LABS: Vitamin B12 377 pg/mL (239-931)
== END ==
LOC: LAB.DROPOF 00:07
PROVIDERS: PCP Physician Assistant; Visit Provider Physician Assistant
DX: E03.9 Hypothyroidism, unspecified (principal); E55.9 Vitamin D deficiency, unspecified; E66.01 Morbid (severe) obesity due to excess calories; B96.89 Other specified bacterial agents as the cause of diseases classified elsewhere; N76.0 Acute vaginitis; Z68.44 Body mass index [BMI] 60.0-69.9, adult
CPT/HCPCS: 80053; 80061; 82306; 82607; 84439; 84443; 85025; 87086

== ENCOUNTER 2023-10-07 10:25 | Emergency (ER) | payer OTHER, SELFPAY ==
[2023-10-07 10:40] VITALS: BP 169/92; PULSE 93; RESP 18; TEMP 37.3; O2SAT 98; BMI 68.0
--- NOTE | 2023-10-07 10:52 | ED_ITS ---
Discharge Plan Disposition Patient Disposition: Home, Self-Care Condition: Good Prescriptions Prescriptions: New azithromycin [Zithromax] 250 mg tablet 250 mg PO UD DOSE PK Qty: 6 0RF Rx Instructions: Take two (2) tablets today, then one (1) tablet days #2 thru #5 guaifenesin [Mucinex] 600 mg tablet extended release 12hr 600 - 1,200 mg PO BIDP PRN (Reason: Congestion) Qty: 30 0RF oseltamivir [Tamiflu] 75 mg capsule 75 mg PO BID Qty: 10 0RF No Action fluticasone propionate [Flonase Allergy Relief] 50 mcg/actuation spray,sanya pension 1 spray INTRANASAL DAILY Qty: 16 2RF Rx Instructions: administer into each nostril duloxetine 30 mg capsule,delayed release(DR/EC) 30 mg PO DAILY Qty: 30 1RF ferrous sulfate [FeroSul] 325 mg (65 mg iron) tablet 325 mg PO cyclobenzaprine 10 mg tablet 10 mg PO Q8H PRN (Reason: muscle spasm) Qty: 90 0RF naproxen [EC-Naproxen] 500 mg tablet,delayed release (DR/EC) 500 mg PO BID Qty: 60 0RF metoprolol succinate [Toprol XL] 25 mg tablet extended release 24 hr 25 mg PO DAILY Qty: 90 3RF irbesartan-hydrochlorothiazide 150-12.5 mg tablet See Rx Instructions .ROUTE .COMPLEX Qty: 90 3RF Dose Instruction: TAKE ONE TABLET BY MOUTH ONCE A DAY Rx Instructions: TAKE ONE TABLET BY MOUTH ONCE A DAY nystatin 100,000 unit/gram powder 1 applic topical TID Qty: 60 1RF minocycline 100 mg tablet 100 mg PO BID Qty: 60 2RF furosemide [Lasix] 20 mg tablet 20 mg PO DAILY Qty: 30 2RF gabapentin [Neurontin] 100 mg capsule 100 mg PO BID Qty: 60 2RF clindamycin HCl 300 mg capsule 300 mg PO Q8H Qty: 30 0RF cholecalciferol (vitamin D3) 25 mcg (1,000 unit) capsule 25 mcg PO DAILY Qty: 90 0RF Slow Fe 142 mg (45 mg iron) tablet extended release 142 mg PO DAILY Qty: 90 3RF albuterol sulfate [ProAir HFA] 90 mcg/actuation HFA aerosol inhaler See Rx Instructions .ROUTE .COMPLEX Qty: 8.5 0RF Dose Instruction: INHALE 2 PUFFS BY MOUTH EVERY 6 HOURS WITH SPACER Rx Instructions: INHALE 2 PUFFS BY MOUTH EVERY 6 HOURS WITH SPACER ibuprofen 800 mg tablet See Rx Instructions .ROUTE .COMPLEX Qty: 60 0RF Dose Instruction: TAKE ONE TABLET BY MOUTH 3 TIMES A DAY NEEDED FOR MODERATE PAIN Rx Instructions: TAKE ONE TABLET BY MOUTH 3 TIMES A DAY NEEDED FOR MODERATE PAIN sulfamethoxazole-trimethoprim [Bactrim DS] 800-160 mg tablet 1 tab PO BID 10 Days Qty: 20 0RF ergocalciferol (vitamin D2) 1,250 mcg (50,000 unit) capsule 1,250 mcg PO WEEKLY Qty: 14 3RF cholecalciferol (vitamin D3) 50 mcg (2,000 unit) capsule 50 mcg PO DAILY Qty: 90 3RF phentermine [Adipex-P] 37.5 mg tablet 37.5 mg PO DAILY Qty: 30 0RF Rx Instructions: must administer 30 minutes before or 1-2 hours after breakfast sulfamethoxazole-trimethoprim [Bactrim DS] 800-160 mg tablet 1 tab PO BID 10 Days Qty: 20 0RF Referrals Follow up/Referrals: Ashlie Marcelino PA [Primary Care Provider] - See instructions Activity Restrictions/Add. Instructions Additional Instructions/Restrictions: Drink plenty of fluids. Take tylenol or ibuprofen for pain or fever. Take the medications as directed. Follow up with your regular doctor. GO TO THE ER FOR ANY WORSENING SYMPTOMS Clinical Impressions Clinical Impression: Otitis media, Influenza B Stand Alone Forms Stand Alone Forms: Work/School Release Instructions Patient Instructions: Acute Bronchitis, DI for Acute Bronchitis Discharge ED Provider: Leonard Headley [facility] General Stated complaint: congestion and ear ache Time Seen by Provider: 10/07/23 10:52 History of Present Illness Provider Complaint: She states that for the past 1 day she has had fever, chills, body aches and cough. Related Data Home Medications Medication Instructions Recorded Confirmed ferrous sulfate 325 mg (65 mg 325 mg PO 04/04/23 05/22/23 iron) tablet (FeroSul) Previous Rx's Medication Instructions Recorded fluticasone propionate 50 1 spray intranasal DAILY #16 grams 08/30/ mcg/actuation nasal spray,suspension (Flonase Allergy Relief) cyclobenzaprine 10 mg tablet 10 mg PO Q8H PRN muscle spasm #90 04/25/22 tabs naproxen 500 mg tablet,delayed 500 mg PO BID #60 tabs 04/25/22 release (EC-Naproxen) duloxetine 30 mg capsule,delayed 30 mg PO DAILY #30 caps 07/10/22 release cholecalciferol (vitamin D3) 25 25 mcg PO DAILY #90 caps 07/12/22 mcg (1,000 unit) capsule furosemide 20 mg tablet (Lasix) 20 mg PO DAILY #30 tabs 10/22/22 irbesartan 150 See Rx Instructions .Route 10/22/22 mg-hydrochlorothiazide 12.5 mg .COMPLEX #90 tabs tablet metoprolol succinate 25 mg 25 mg PO DAILY #90 tabs 10/22/22 tablet,extended release 24 hr (Toprol XL) minocycline 100 mg tablet 100 mg PO BID #60 tabs 10/22/22 nystatin 100,000 unit/gram topical 1 applic topical TID #60 grams 10/22/22 powder ferrous sulfate 142 mg (45 mg 142 mg PO DAILY #90 tabs 11/28/22 iron) tablet,extended release (Slow Fe) gabapentin 100 mg capsule 100 mg PO BID #60 caps 11/28/22 (Neurontin) albuterol sulfate 90 mcg/actuation See Rx Instructions .Route 04/05/23 aerosol inhaler (ProAir HFA) .COMPLEX #8.5 grams ibuprofen 800 mg tablet See Rx Instructions .Route 04/22/23 .COMPLEX #60 tabs sulfamethoxazole 800 1 tab PO BID 10 days #20 tabs 05/17/23 mg-trimethoprim 160 mg tablet (Bactrim DS) clindamycin HCl 300 mg capsule 300 mg PO Q8H #30 caps 05/22/23 cholecalciferol (vitamin D3) 50 50 mcg PO DAILY #90 caps 05/23/23 mcg (2,000 unit) capsule ergocalciferol (vitamin D2) 1,250 1,250 mcg PO WEEKLY #14 caps 05/23/23 mcg (50,000 unit) capsule phentermine 37.5 mg tablet 37.5 mg PO DAILY #30 tabs 05/24/23 (Adipex-P) sulfamethoxazole 800 1 tab PO BID 10 days #20 tabs 07/30/23 mg-trimethoprim 160 mg tablet (Bactrim DS) azithromycin 250 mg tablet 250 mg PO UD DOSE PK #6 tabs 10/07/23 (Zithromax) guaifenesin 600 mg tablet, 600 - 1,200 mg PO BIDP PRN 10/07/23 extended release 12 hr (Mucinex) Congestion #30 tabs oseltamivir 75 mg capsule (Tamiflu) 75 mg PO BID #10 caps 10/07/23 Allergies Allergy/AdvReac Type Severity Reaction Status Date / Time acetaminophen [From TYLENOL] Allergy Mild upsets her Verified 10/07/23 11:05 stomach penicillin G Allergy Mild Verified 10/07/23 11:05 codeine Allergy Verified 10/07/23 11:05 methylprednisolone Allergy Verified 10/07/23 11:05 [From Medrol] [facility] Disclaimer: The information contained in this section may have been updated after the patient was seen, as this information can be updated by other users. Medical History Asthma BMI 50.0-59.9, adult Hypertension Hypothyroidism (~01/30/18) Knee pain Migraine Tinea pedis Urinary tract infection Vitamin D deficiency (~01/30/18) Surgical History History of section History of cholecystectomy Social History Smoking Status: Never smoker alcohol intake: never substance use type: denies use current occupational status: employed Travel in the last 8 weeks: None household members: family and children housing: house number of children: 1 ROS Obtained: Yes All systems reviewed & no additional complaints except as documented Constitutional Constitutional: Reports chills and Reports fever(s) Eyes Eyes: Denies eye discharge ENT Ears, Nose, Mouth, and Throat: Reports as per HPI Cardiovascular Cardiovascular: Denies chest pain Respiratory Respiratory: Denies chest congestion and Reports cough Gastrointestinal Gastrointestingal: Reports nausea; Denies abdominal pain, constipation, cramping, diarrhea or vomiting Musculoskeletal Musculoskeletal: Denies arthralgias Integumentary/Breasts Skin/Breast: Denies rash Neurologic Neurologic: Denies paresthesias Physical Exam General General appearance: alert and in no apparent distress Eye Eye exam: Present normal appearance, PERRL and EOMI ENT ENT exam: Present mucous membranes moist and normal external ear exam Expanded ENT Exam External ear exam: Present normal external inspection TM/Canal exam: Bilateral TM: erythema and bulging Nose exam: Absent sinus tenderness Nasal speculum exam: Bilateral: normal Mouth exam: Present normal external inspection; Absent drooling Teeth exam: Present normal inspection Throat exam: Present tonsillar erythema and tonsillomegaly Neck Neck exam: Present normal inspection, full ROM and trachea midline; Absent tenderness, lymphadenopathy or thyromegaly Chest Chest inspection: Present normal inspection and symmetric chest wall rise; Absent tenderness or rash Respiratory Respiratory exam: Present normal lung sounds bilaterally; Absent respiratory distress, wheezes, stridor or accessory muscle use Cardiovascular Cardiovascular exam: Present regular rate, normal rhythm and normal heart sounds Abdominal Exam Abdominal exam: Present soft; Absent distention, tenderness, guarding, rebound or rigidity Extremities Exam Extremities exam: Present normal inspection, full ROM and normal capillary refill; Absent tenderness or calf tenderness Back Exam Back exam: Present normal inspection and full ROM; Absent tenderness Neurological Exam Neurological exam: Present alert and oriented X3 Psychiatric Psychiatric exam: Present normal affect and normal mood Skin Skin exam: Present warm, dry, intact and normal color Lymphatic Lymphatic Findings: no adenopathy Medical Decision Making Medical Records Medical records reviewed: No I reviewed the patient's medical records. Michael Inquiry Pt receiving controlled substance: No Lab Data Lab results reviewed: Yes I reviewed the patient's lab results.
[2023-10-07 11:07] LABS: UTC Strep Screen (Rapid) Negative (Negative)
[2023-10-07 11:32] VITALS: BP 169/92; PULSE 93; RESP 18; TEMP 37.3; O2SAT 98
== END 2023-10-07 11:32 | disposition home or self-care (01) ==
PROVIDERS: Emergency Provider Nurse Practitioner Family; PCP Physician Assistant
DX: J10.1 Influenza due to other identified influenza virus with other respiratory manifestations (principal); H66.93 Otitis media, unspecified, bilateral; R05.9 Cough, unspecified; R50.9 Fever, unspecified; M79.18 Myalgia, other site; E03.9 Hypothyroidism, unspecified; I10 Essential (primary) hypertension; E66.01 Morbid (severe) obesity due to excess calories; Z68.44 Body mass index [BMI] 60.0-69.9, adult
CPT/HCPCS: 87635; 87880; 99212; 99214; G0463

== ENCOUNTER 2024-01-17 11:38 | Outpatient (CLI) | payer OTHER, SELFPAY ==
[2024-01-20 04:07] LABS: Neisseria gonorrhoeae, NAA Negative (Negative)
== END 2024-01-17 23:59 | disposition home or self-care (01) ==
LOC: LAB.DROPOF 01-20 11:39
PROVIDERS: PCP Family Medicine; Visit Provider Family Medicine
DX: R31.9 Hematuria, unspecified (principal); N39.0 Urinary tract infection, site not specified; B96.29 Other Escherichia coli [E. coli] as the cause of diseases classified elsewhere
CPT/HCPCS: 87086; 87210; 87491; 87591

== ENCOUNTER 2024-06-15 10:19 | Outpatient (CLI) | payer OTHER, SELFPAY ==
[2024-06-15 19:01] LABS: Basophils # 0.1 K/mm3 (0-0.2); Basophils % 0.7 % (0.1-2.0); Eosinophils # 0.3 K/mm3 (0.0-0.4); Eosinophils % 2.5 % (0.1-12.0); Hematocrit 40.7 % (37.0-47.0); Hemoglobin 12.4 g/dL (12.2-16.2); Lymphocytes # 2.3 K/mm3 (0.7-4.5); Lymphocytes % 17.1 % (10-50); Mean Corpuscular HGB Conc 30.5 g/dL (31.8-35.4); Mean Corpuscular Hemoglobin 26.3 pg (27.0-31.2); Mean Corpuscular Volume 86.4 fl (81-99); Mean Platelet Volume 9.3 fl (7.4-10.4); Monocytes # 0.7 K/mm3 (0.1-1.0); Monocytes % 5.1 % (1.7-9.3); Neutrophils # 9.9 K/mm3 (1.8-7.8); Neutrophils % 74.6 % (37.0-80.0); Platelet Count 450 K/mm3 (142-424); Red Blood Count 4.71 M/mm3 (4.20-5.40); Red Cell Distribution Width 16.2 % (11.5-17.5); White Blood Count 13.2 K/mm3 (4.8-10.8)
[2024-06-15 19:26] LABS: Alanine Aminotransferase 19 U/L (12-78); Albumin Level 3.9 g/dl (3.5-5.0); Albumin/Globulin Ratio 1.3 (1.1-1.8); Alkaline Phosphatase 88 U/L (38-126); Anion Gap 7.7 mEq/L (5-15); Aspartate Amino Transferase 23 U/L (14-36); Bilirubin,Total 0.4 mg/dl (0.2-1.3); Blood Urea Nitrogen 11 mg/dl (7-17); Calcium 9.1 mg/dl (8.4-10.2); Carbon Dioxide 28 mmol/L (22.0-30.0); Chloride 104 mmol/L (98-107); Estimated Glomerular Filt Rate 140 ml/min (>60); GFR (African American) 170 ML/MIN (>60); Glucose 100 mg/dl (74-100); Potassium 3.7 mmoL/L (3.5-5.1); Sodium 136 mmol/L (136-145); Total Protein,Serum 6.9 g/dl (6.3-8.2)
[2024-06-15 19:43] LABS: 25-OH Vitamin D, Total < 12.8 ng/mL (30-100)
[2024-06-15 19:54] LABS: Thyroid Stimulating Hormone 2.55 uIU/mL (0.465-4.68)
[2024-06-15 20:13] LABS: Vitamin B12 471 pg/mL (239-931)
[2024-06-16 04:50] LABS: Hemoglobin A1C 5.6 % (4.0-6.0)
== END 2024-06-15 23:59 | disposition home or self-care (01) ==
LOC: LAB.DROPOF 06-16 10:19
PROVIDERS: PCP Nurse Practitioner; Visit Provider Nurse Practitioner
DX: R30.9 Painful micturition, unspecified (principal); E55.9 Vitamin D deficiency, unspecified; E03.9 Hypothyroidism, unspecified; Z68.43 Body mass index [BMI] 50.0-59.9, adult; I10 Essential (primary) hypertension
CPT/HCPCS: 80050; 80053; 82306; 82607; 83036; 84443; 85025; 87086

== ENCOUNTER 2024-07-02 18:25 | Outpatient (CLI) | payer OTHER, SELFPAY | END 2024-07-02 23:59 | disposition home or self-care (01) | LOC: LAB.DROPOF 18:25 | PROVIDERS: PCP Nurse Practitioner; Visit Provider Nurse Practitioner | DX: R30.9 Painful micturition, unspecified (principal) | CPT/HCPCS: 87086; 87088; 87186 ==

== ENCOUNTER 2024-07-13 17:03 | Outpatient (CLI) | payer OTHER, SELFPAY ==
[2024-07-13 15:12] LABS: Microscopic, Urine URINE MICROSCOPIC (MICROSCOPIC)
[2024-07-13 17:00] LABS: Appearance,Urine CLEAR (Clear); Bilirubin,Urine Negative (Negative); Blood, Urine Negative (Negative); Color,Urine YELLOW (Yellow); Glucose,Urine (UA) Negative (Negative); Ketones,Urine Negative (Negative); Leukocyte Esterase,Urine Negative (Negative); Nitrate,Urine Negative (Negative); Protein,Urine Negative (Negative); Specific Gravity, Urine >= 1.030 (1.005-1.030); Urobilinogen,Urine 0.2 EU/dl (0.2)
[2024-07-13 18:06] LABS: Mucus,Urine Trace /lpf
[2024-07-17 16:28] LABS: Atopobium vaginae Low - 0 Score (.); BVAB2 Low - 0 Score (.); Candida albicans NAA Negative (Negative); Candida glabrata Negative (Negative); Chlamydia Trachomatis NAA Negative (Negative); HSV 1 NAA Negative (Negative); HSV 2 NAA Negative (Negative); Megasphaera 1 Low - 0 Score (.); Neisseria gonorrhoeae NAA Negative (Negative); Trich vag NAA Negative (Negative)
== END 2024-07-13 23:59 | disposition home or self-care (01) ==
LOC: LAB.DROPOF 17:04
PROVIDERS: PCP Urology; Visit Provider Urology
DX: N39.0 Urinary tract infection, site not specified (principal)
CPT/HCPCS: 81001; 87086; 87491; 87529; 87591; 87661; 87798; 87801

== ENCOUNTER 2024-07-16 14:36 | Outpatient (CLI) | payer OTHER, SELFPAY ==
--- NOTE | 2024-07-16 14:36 | US_ITS ---
PROCEDURE INFORMATION: Exam: US Retroperitoneal, Complete, Kidneys and Bladder Exam date and time: 07/16/2024 2:40 PM Age: 34 years old Clinical indication: Other: UTI TECHNIQUE: Imaging protocol: Real-time ultrasound of the retroperitoneum with image documentation. Complete exam focused on the bilateral kidneys and urinary bladder. COMPARISON: US URINARY BLADDER 07/16/2024 2:29 PM FINDINGS: Right kidney: Right kidney measures 10.2 cm, 5.4 cm, 5.3 cm. Normal renal contour. Normal parenchymal echogenicity. No solid mass identified. No definite shadowing nephrolithiasis. No hydronephrosis. Left kidney: Left kidney measures 10.9 cm, 6.3 cm, 5.7 cm. Normal renal contour. Normal parenchymal echogenicity. No solid mass identified. No definite shadowing nephrolithiasis. No hydronephrosis. Urinary bladder: Not imaged. Liver: Increased hepatic echogenicity is identified in the right abdomen. Incomplete visualization of the liver on this study. Spleen: The spleen measures: 11 cm greatest length. IMPRESSION: 1. Unremarkable kidneys and bladder. 2. Hepatic steatosis.
--- NOTE | 2024-07-16 14:36 | US_ITS ---
PROCEDURE INFORMATION: Exam: US Pelvis Limited, Bladder Exam date and time: 07/16/2024 2:29 PM Age: 34 years old Clinical indication: Bladder; Hematuria and urine retention TECHNIQUE: Imaging protocol: Real-time pelvic ultrasound (non-obstetric) with image documentation. Exam focused on the urinary bladder. COMPARISON: US URINARY BLADDER 02/06/2021 11:18 AM FINDINGS: Urinary bladder: Unremarkable bladder. Bladder pre-void volume (cc): 97 cc. Bladder measures 7.5 cm, 5.2 cm, 4.7 cm Bladder post-void residual volume (cc): 2 cc IMPRESSION: 2 cc postvoid residual bladder volume.
--- NOTE | 2024-07-16 15:01 | XR_ITS ---
PROCEDURE INFORMATION: Exam: XR Abdomen Exam date and time: 07/16/2024 3:03 PM Age: 34 years old Clinical indication: Other: Hematuria TECHNIQUE: Imaging protocol: Radiologic exam of the abdomen. Views: Frontal supine view of the abdomen. 1 View. COMPARISON: US URINARY BLADDER 07/16/2024 2:29 PM FINDINGS: Tubes, catheters and devices: Surgical clips overlie the right abdomen. Gastrointestinal tract: Unremarkable bowel gas pattern. Organs: No radiographic evidence for solid organomegaly. Bones/joints: Mild to moderate generalized bony degenerative changes. Bony structures appear otherwise unremarkable. Soft tissues: This study is limited by patient's body habitus. IMPRESSION: 1. No acute abnormality identified. 2. Limited study. 3. Degenerative and postsurgical changes are demonstrated, as described above.
== END 2024-07-16 23:59 | disposition home or self-care (01) ==
LOC: RAD 14:36
PROVIDERS: PCP Urology; Visit Provider Urology
DX: N39.0 Urinary tract infection, site not specified (principal); N32.81 Overactive bladder
CPT/HCPCS: 74018; 76770; 76857

== ENCOUNTER 2024-09-22 09:48 | Emergency (ER) | payer OTHER, SELFPAY ==
[2024-09-22 10:14] VITALS: BP 153/85; PULSE 85; RESP 18; TEMP 36.8; O2SAT 100; BMI 68.0
[2024-09-22 10:22] LABS: UTC Strep Screen (Rapid) Negative (Negative)
--- NOTE | 2024-09-22 10:37 | EXP.UTC ---
Discharge Plan Disposition Patient Disposition: Home, Self-Care Condition: Good Prescriptions Prescriptions: New azithromycin [Zithromax] 250 mg tablet 250 mg PO UD DOSE PK Qty: 6 0RF Rx Instructions: Take two (2) tablets today, then one (1) tablet days #2 thru #5 [id number] [Bromfed DM] 2-30-10 mg/5 mL Syrup 5 ml PO Q6H PRN (Reason: Cough) Qty: 240 0RF prednisone 20 mg tablet 20 mg PO BID 4 Days Qty: 8 0RF No Action estradiol [Vagifem] 10 mcg tablet 10 mcg vaginal DAILY 30 Days Qty: 30 3RF Referrals Follow up/Referrals: Kaya Mccain APRN [Primary Care Provider] - See instructions Activity Restrictions/Add. Instructions Additional Instructions/Restrictions: Drink plenty of fluids. Take tylenol or ibuprofen for pain or fever. Take the medications as directed. Follow up with your regular doctor. GO TO THE ER FOR ANY WORSENING SYMPTOMS Clinical Impressions Clinical Impression: Acute bronchitis, Sinusitis Instructions Patient Instructions: Sinusitis, DI for Sinusitis Print Language Print Language: Bulgarian Discharge ED Provider: Leonard Headley [facility] General Stated complaint: ear pain head/chest congestion cough Mode of Arrival: Ambulatory Source of Information: Patient Time Seen by Provider: 09/22/24 10:23 Description of Symptoms (Recalled from Triage Doc. by RN): DEEP CHEST COUGH, EAR PAIN, DRAINAGE (YELLOW), WORSE AT NIGHT TIME\ HEENT Symptoms (Recalled from RN notes): Yes Resp Symptoms (Recalled from RN notes): Yes Skin Symptoms (Recalled from RN notes): No MS Symptoms (Recalled from RN notes): No Functional Status (Recalled from RN notes): WNL History of Present Illness Provider Complaint: She states that for the past 4 days she has had worsening chest congestion, sinus congestion and sore throat. Related Data Previous Rx's ?Medication ?Instructions ?Recorded estradiol 10 mcg vaginal tablet 10 mcg vaginal DAILY 30 days #30 08/03/24 (Vagifem) tabs azithromycin 250 mg tablet 250 mg PO UD DOSE PK #6 tabs 09/22/24 (Zithromax) [id number]-rbvfnvihcykgsep-DO 5 ml PO Q6H PRN Cough #240 mL 09/22/24 2 mg-30 mg-10 mg/5 mL oral syrup (Bromfed DM) prednisone 20 mg tablet 20 mg PO BID 4 days #8 tabs 09/22/24 Allergies Allergy/AdvReac Type Severity Reaction Status Date / Time acetaminophen (From TYLENOL) Allergy Mild upsets her Verified 07/13/24 13:57 stomach penicillin G Allergy Mild Verified 07/13/24 13:57 codeine Allergy Verified 07/13/24 13:57 methylprednisolone (From Allergy Verified 07/13/24 13:57 Medrol) Worker's Comp Is this a Worker's Comp case?: No [facility] Disclaimer: The information contained in this section may have been updated after the patient was seen, as this information can be updated by other users. Medical History Lumbar paraspinal muscle spasm Bilateral low back pain with left-sided sciatica Essential hypertension Sinusitis Sinusitis Pain of both eyes Otitis media Influenza B Urinary tract infection Migraine Asthma Hypertension Knee pain Tinea pedis BMI 50.0-59.9, adult Vitamin D deficiency (~01/30/18) Hypothyroidism (~01/30/18) Surgical History History of cholecystectomy History of section Family History (Updated 09/01/24 @ 17:28 by Madison Snyder RN) Other No significant family history Social History Smoking Status: Never smoker alcohol intake: never substance use type: denies use current occupational status: employed Travel in the last 8 weeks: None household members: family and children housing: house number of children: 1 Have you lived/traveled outside [place] in past 30 days?: No Contact w/someone who lives/traveled outside US past 30 days?: No Exposure to someone with infectious disease in past 14 days?: No Do you have a fever (greater than 100.4 F or 38 C)?: No Have you tested positive for COVID-19: No Exposed to someone with COVID-19 in past 14 days?: No Do you have a sore throat?: Yes Do you have a cough?: Yes Do you have any weakness?: Yes Do you have any diarrhea?: No Are you experiencing any unusual bleeding?: No Do you have any muscle aches/pain?: No Do you have any abdominal pain?: No Are you experiencing loss of taste or smell?: No ROS Obtained: Yes All systems reviewed & no additional complaints except as documented Constitutional Constitutional: Reports as per HPI, Denies chills and Denies fever(s) Eyes Eyes: Denies eye discharge ENT Ears, Nose, Mouth, and Throat: Reports as per HPI Cardiovascular Cardiovascular: Denies chest pain Respiratory Respiratory: Denies chest congestion and Reports cough Gastrointestinal Gastrointestingal: Reports nausea; Denies abdominal pain, constipation, cramping, diarrhea or vomiting Musculoskeletal Musculoskeletal: Denies arthralgias Integumentary/Breasts Skin/Breast: Denies rash Neurologic Neurologic: Denies paresthesias Physical Exam General General appearance: alert and in no apparent distress Eye Eye exam: Present normal appearance, PERRL and EOMI ENT ENT exam: Present mucous membranes moist and normal external ear exam Expanded ENT Exam External ear exam: Present normal external inspection TM/Canal exam: Bilateral TM: erythema and bulging Nose exam: Absent sinus tenderness Nasal speculum exam: Bilateral: normal Mouth exam: Present normal external inspection; Absent drooling Teeth exam: Present normal inspection Throat exam: Present tonsillar erythema and tonsillomegaly Neck Neck exam: Present normal inspection, full ROM and trachea midline; Absent tenderness, lymphadenopathy or thyromegaly Chest Chest inspection: Present normal inspection and symmetric chest wall rise; Absent tenderness or rash Respiratory Respiratory exam: Present normal lung sounds bilaterally; Absent respiratory distress, wheezes, stridor or accessory muscle use Cardiovascular Cardiovascular exam: Present regular rate, normal rhythm and normal heart sounds Abdominal Exam Abdominal exam: Present soft; Absent distention, tenderness, guarding, rebound or rigidity Extremities Exam Extremities exam: Present normal inspection, full ROM and normal capillary refill; Absent tenderness or calf tenderness Back Exam Back exam: Present normal inspection and full ROM; Absent tenderness Neurological Exam Neurological exam: Present alert and oriented X3 Psychiatric Psychiatric exam: Present normal affect and normal mood Skin Skin exam: Present warm, dry, intact and normal color Lymphatic Lymphatic Findings: no adenopathy Medical Decision Making Medical Records Medical records reviewed: No I reviewed the patient's medical records. Screening: Per USPSTF and CDC recommendations, given the prevalence of disease in our region, it is our hospital?s policy to screen for HIV and viral Hepatitis for all patients aged 18 and over and those with ongoing risk factors. Michael Inquiry Pt receiving controlled substance: No Vital Signs: 09/22/24 10:14 Temperature 98.3 F Temperature Source Oral Pulse Rate [Left Radial] 85 Respiratory Rate 18 Blood Pressure [Left Arm] 153/85 H Blood Pressure Mean [Left Arm] 107 02 Sat by Pulse Oximetry 100 Lab Data Lab results reviewed: Yes I reviewed the patient's lab results. Lab Results 09/22/24 10:14: Strep Scn Rapid Clinic Negative Orders (Tests/Meds): ORDERS Category Date Time Status Strep Screen Confirmation Stat Micro 09/22/24 10:14 Received
[2024-09-22 11:17] VITALS: BP 153/85; PULSE 85; RESP 18; TEMP 36.8
== END 2024-09-22 11:21 | disposition home or self-care (01) ==
PROVIDERS: Emergency Provider Nurse Practitioner Family; PCP Nurse Practitioner
DX: J20.9 Acute bronchitis, unspecified (principal); J01.90 Acute sinusitis, unspecified; R05.9 Cough, unspecified; R11.0 Nausea; H92.09 Otalgia, unspecified ear
CPT/HCPCS: 87880; 99212; G0381

== ENCOUNTER 2024-09-29 13:42 | Outpatient (CLI) | payer OTHER, SELFPAY ==
[2024-09-29 18:10] LABS: Coronavirus 19, PCR Not Detected (NotDetected); Influenza A, PCR Not Detected (NotDetected); Influenza B, PCR Not Detected (NotDetected)
== END 2024-09-29 23:59 | disposition home or self-care (01) ==
LOC: LAB.DROPOF 09-30 13:19
PROVIDERS: PCP Student in an Organized Health Care Education/Training Program; Visit Provider Student in an Organized Health Care Education/Training Program
DX: R09.81 Nasal congestion (principal)
CPT/HCPCS: 87636

== ENCOUNTER 2024-10-19 14:10 | Outpatient (CLI) | payer OTHER, SELFPAY | END 2024-10-19 23:59 | disposition home or self-care (01) | LOC: LAB.DROPOF 10-20 09:49 | PROVIDERS: PCP Nurse Practitioner; Visit Provider Nurse Practitioner | DX: R30.0 Dysuria (principal) | CPT/HCPCS: 87086; 87088; 87186 ==

== ENCOUNTER 2024-11-11 17:08 | Emergency (ER) | payer OTHER, SELFPAY ==
[2024-11-11 17:10] VITALS: BP 183/111; PULSE 99; RESP 20; TEMP 36.8; O2SAT 100; BMI 68.0
--- NOTE | 2024-11-11 17:45 | PC.NURSE ---
rounded on the pt. the pt voices that she does not need anything at this time. call light is within reach of the pt.
--- NOTE | 2024-11-11 17:50 | XR_ITS ---
PROCEDURE INFORMATION: Exam: XR Left Knee Exam date and time: 11/11/2024 5:47 PM Age: 34 years old Clinical indication: Pain; Knee; Left; Additional info: Left knee pain and swelling TECHNIQUE: Imaging protocol: Radiologic exam of the left knee. Views: 3 views. COMPARISON: No relevant prior studies available. FINDINGS: Bones/joints: No fracture or destructive lesion. Mild tricompartmental osteoarthritis. Soft tissues: Normal. IMPRESSION: 1. No acute findings. 2. Mild tricompartmental osteoarthritis.
--- NOTE | 2024-11-11 17:50 | XR_ITS ---
PROCEDURE INFORMATION: Exam: XR Right Knee Exam date and time: 11/11/2024 5:49 PM Age: 34 years old Clinical indication: Pain; Knee; Right; Additional info: Right knee pain and swelling, best images possible TECHNIQUE: Imaging protocol: Radiologic exam of the right knee. Views: 3 views. COMPARISON: CR XR KNEE RT 3V 10/03/2020 8:38 AM FINDINGS: Bones/joints: No fracture or destructive lesion. Mild/moderate tricompartmental osteoarthritis. Soft tissues: Normal. IMPRESSION: 1. No acute findings. 2. Mild sliding moderate tricompartmental osteoarthritis has progressed.
--- NOTE | 2024-11-11 17:51 | ED_ITS ---
<Statement entered by Saurabh Eagle MD - 11/11/24 19:28> I was consulted by the MICHELLE, and we discussed the complexity of the problems being addressed. I approved the treatment and management plan for this patient's care in the emergency department, thus performing a substantive portion of the medical decision making. Saurabh Eagle MD Discharge Plan Disposition Patient Disposition: Home, Self-Care Condition: Good Chief Complaint: Extremity Injury, Lower Prescriptions Prescriptions: No Action fluconazole 150 mg tablet 150 mg PO QWEEK Qty: 2 1RF estradiol [Vagifem] 10 mcg tablet 10 mcg vaginal DAILY 30 Days Qty: 30 3RF levofloxacin 750 mg tablet 750 mg PO DAILY Qty: 7 0RF Referrals Follow up/Referrals: Kaya Mccain APRN [Primary Care Provider] - See instructions Delroy Felix DO [Staff Physician] - See instructions (Bilateral knee osteoarthritis) Clinical Impressions Clinical Impression: Bilateral knee pain Instructions Patient Instructions: DI for Knee Pain Print Language Print Language: Lithuanian Discharge ED Provider: Saurabh Eagle General Adult HPI General Chief complaint: Extremity Injury, Lower Stated complaint: bilateral knee pain Time Seen by Provider: 11/11/24 17:12 Mode of Arrival: Ambulatory Source of Information: Patient Limitations: No Limitations Description of Symptoms (Recalled from ER Triage Doc. by RN): pt tripped and caught herself but ever since has had worsening pain upon ambulation ever since for the last 4-5 days. pt has been taking motrin along with heat and ice History of Present Illness HPI narrative: 34-year-old female presents emergency department with bilateral knee pain left worse than right, patient states that she has knee pain/osteoarthritis in bilateral knees at baseline. She states around 4 to 5 days ago she tripped , and struck the front of her knee against a cabinet . Has been utilizing ibuprofen and heat ice with little to no relief of her symptomatology. She admits to decreased range of motion and pain, difficulty ambulating because of this. Denies any real upper or lower extremity weakness, no numbness or tingling, no urinary bladder or bowel dysfunction no radicular type symptomatology, no other trauma, or injury, need lower lumbar spine pain, denies any fever chills chest pain shortness of breath nausea vomiting constipation diarrhea, no abdominal pain, urinary type symptomatology. The past medical history consistent with obesity, osteoarthritis, patient denies any substance use, initial triage vitals unremarkable. Onset (ago): day(s) Related Data Previous Rx's ?Medication ?Instructions ?Recorded estradiol 10 mcg vaginal tablet 10 mcg vaginal DAILY 30 days #30 08/03/24 (Vagifem) tabs fluconazole 150 mg tablet 150 mg PO QWEEK #2 tabs 10/19/24 levofloxacin 750 mg tablet 750 mg PO DAILY #7 tabs 10/25/24 Allergies Allergy/AdvReac Type Severity Reaction Status Date / Time acetaminophen (From TYLENOL) Allergy Mild upsets her Verified 11/11/24 17:25 stomach penicillin G Allergy Mild Hives Verified 11/11/24 17:25 codeine Allergy Confusion Verified 11/11/24 17:25 methylprednisolone (From Allergy Vomiting Verified 11/11/24 17:25 Medrol) [facility] Disclaimer: The information contained in this section may have been updated after the patient was seen, as this information can be updated by other users. Medical History Lumbar paraspinal muscle spasm Bilateral low back pain with left-sided sciatica Essential hypertension Sinusitis Sinusitis Pain of both eyes Otitis media Influenza B Urinary tract infection Migraine Asthma Hypertension Knee pain Tinea pedis BMI 50.0-59.9, adult Vitamin D deficiency (~01/30/18) Hypothyroidism (~01/30/18) Surgical History History of cholecystectomy History of section Family History Other No significant family history Social History Smoking Status: Never smoker alcohol intake: never substance use type: denies use current occupational status: employed Travel in the last 8 weeks: None household members: family and children housing: house number of children: 1 Have you lived/traveled outside US in past 30 days?: No Contact w/someone who lives/traveled outside US past 30 days?: No Exposure to someone with infectious disease in past 14 days?: No Do you have a fever (greater than 100.4 F or 38 C)?: No Have you tested positive for COVID-19: No Exposed to someone with COVID-19 in past 14 days?: No Do you have a sore throat?: No Do you have a cough?: No Do you have any weakness?: No Do you have any diarrhea?: No Are you experiencing any unusual bleeding?: No Do you have any muscle aches/pain?: No Do you have any abdominal pain?: No Are you experiencing loss of taste or smell?: No Other Medical History Have you received the Flu Vaccine for this season: Yes Have you received the Pneumonia Vaccine: No ROS Obtained: Yes All systems reviewed & no additional complaints except as documented Physical Exam General General appearance: alert and in no apparent distress Head Head exam: atraumatic and normocephalic Eye Eye exam: Present PERRL and EOMI ENT ENT exam: Present mucous membranes moist Neck Neck exam: Present normal inspection Chest Chest inspection: Present normal inspection and symmetric chest wall rise Respiratory Respiratory exam: Present normal lung sounds bilaterally; Absent respiratory distress Cardiovascular Cardiovascular exam: Present regular rate and normal rhythm Abdominal Exam Abdominal exam: Present soft; Absent tenderness Extremities Exam Extremities exam: Present normal inspection, tenderness and other (Bilateral lower extremity swelling, could be due to patient's chronic lymphedema/obesity, patient has some pain palpation to the superior patella aspect prepatellar aspect, patella is mobile and free, negative Homans' sign, otherwise neurovascular intact. Patient moves extremity to command with goo); Absent full ROM Neurological Exam Neurological exam: Present alert and oriented X3 Psychiatric Psychiatric exam: Present normal affect Skin Skin exam: Present warm and dry Medical Decision Making Medical Records Medical records reviewed: Yes I reviewed the patient's medical records. Screening: Per USPSTF and CDC recommendations, given the prevalence of disease in our region, it is our hospital?s policy to screen for HIV and viral Hepatitis for all patients aged 18 and over and those with ongoing risk factors. Michael Inquiry Pt receiving controlled substance: No Michael was queried for this patient: No Vital Signs: 11/11/24 17:10 Temperature 98.2 F Temperature Source Oral Pulse Rate [Left Radial] 99 H Respiratory Rate 20 Blood Pressure [Right Arm] 183/111 H Blood Pressure Mean [Right Arm] 135 02 Sat by Pulse Oximetry 100 Oxygen Delivery Method Room Air Orders (Tests/Meds): ED MEDICATIONS Discontinued Medications Generic Name Dose Route Start Last Admin Trade Name Freq PRN Reason Stop Dose Admin Ketorolac Tromethamine 15 mg 11/11/24 17:51 02/26/25 18:15 Ketorolac 30mg/Ml Vial IM 11/11/24 17:52 15 mg ONCE ONE Administration ORDERS Category Date Time Status XR knee LT 3V Stat Exams 11/11/24 17:50 Completed XR knee RT 3V Stat Exams 11/11/24 17:50 Completed Medical Decision Narrative: 34-year-old female presents [facility] with bilateral knee pain left worse than right, differential diagnose include not limited to, knee dislocation, patellar fracture, knee sprain/strain, ligamentous injury, knee fracture. Discussed patient case with attending physician Dr. Eagle. Will obtain bilateral knee x-rays for further evaluation and give 15 mg IM Toradol for pain. I reviewed the patient's bilateral knee x-rays along the corresponding radiologic reports, there are no acute findings, there is mild tricompartmental osteoarthritis, of note on the patient's right knee x-ray there is mild sliding moderate tricompartmental osteoarthritis has progressed. I discussed the results with the patient at the bedside. Patient most likely has loadbearing injury/bilateral mild knee osteoarthritis, due to obesity and load/weightbearing intolerance. Patient will be discharged home to self-care recommend ibuprofen 800 mg as needed, rest ice compression elevation, follow-up with orthopedic provider. Patient will return to [facility] with any worsening signs or symptoms, low concern for DVT at this time patient is able to ambulate, no injury, no overt swelling of the lower extremity that is increased over 1 side to the other, no other acute signs or symptoms concerning for acute DVT. Patient voiced understanding of the current treatment plan/discharge plan. Strict ED return precaution given. Critical Care Critical Care Time Critical Care Time: No
[2024-11-11] MEDS: KETOROLAC 30MG/ML VIAL 15 MG IM (18:15)
[2024-11-11 18:49] VITALS: BP 170/96; PULSE 90; RESP 20; TEMP 36.8; O2SAT 100
== END 2024-11-11 18:49 | disposition home or self-care (01) ==
PROVIDERS: Emergency Provider Emergency Medicine; PCP Nurse Practitioner
DX: M25.562 Pain in left knee (principal); M25.561 Pain in right knee
CPT/HCPCS: 73562; 96372; 99283; J1885

== ENCOUNTER 2025-02-07 10:46 | Outpatient (CLI) | payer OTHER, SELFPAY | END 2025-02-07 23:59 | disposition home or self-care (01) | LOC: LAB.DROPOF 02-09 10:22 | PROVIDERS: PCP Nurse Practitioner; Visit Provider Nurse Practitioner Family | DX: R35.0 Frequency of micturition (principal) | CPT/HCPCS: 87086 ==

== ENCOUNTER 2025-03-15 10:43 | Outpatient (CLI) | payer OTHER, SELFPAY ==
--- OUTSIDE RECORDS SUMMARY | 2025-01-18 14:00 | XMS_ITS | Encounter Summary ---
Author Organization [employer] ([place], [place], [place], [place]) Address [address] [place] [address] Care Team Providers Care Turn Supervisor Name Role Phone Unavailable Primary Care Provider Unavailabl e Reason for Referral * MRI (Routine) - Closed Specialty Diagnoses / Procedures Referred By Contac t Referred To Contact Radiology Diagnoses Internal derangement of left knee Primary osteoarthritis of left knee Procedures MR lower extremity joint only without IV contrast left side Leonard Roger MD [address] [place] [phone] Phone: tel: fax: [facility] [address] [place] [address] Phone: tel: fax: Referral ID Status Reason Start Date Expiration Date V isits Requested Visits Authorized [id number] Closed Continuity of Care 01/18/2025 01/18/2026 1 1 Reason for Visit * Reason Comments Knee Pain Left knee pain Encounter Details Date Type Department Care Team (Late st Contact Info) Description 01/18/2025 2:00 PM EDT Office Visit [facility] - [address] [address] Leonard Roger MD [address] [place] [phone] Internal derangement of left knee (Primary Dx); Primary osteoarthritis of left knee Social History Tobacco Use Types Packs/Day Years Used Date Smoking Tobacco: Never Assessed Comments Unknown Sex and Gender Information Value Date Recorded Sex Assigned at Not on file Legal Sex Female 5:59 PM CDT Gender Identity Not on file Sexual Orientation Not on file documented as of this encounter Last Filed Vital Signs Vital Sign Reading Time Taken Comments Blood Pressure 140/86 01/18/2025 2:18 PM EDT Pulse 96 01/18/2025 2:18 PM EDT Temperature - - Respiratory Rate - - Oxygen Saturation - - Inhaled Oxygen Concentration - - Weight 163.3 kg (360 lb) 01/18/2025 2:18 PM EDT Height 154.9 cm (5' 1 ) 01/18/2025 2:18 PM EDT Body Mass Index 68.02 01/18/2025 2:18 PM EDT documented in this encounter Progress Notes * Leonard Roger MD - 01/18/2025 2:00 PM EDT NAME: Christina Fox CSN: [id number] : 1990 PCP: No primary care provider on file. REASON FOR VISIT Knee Pain (Left knee pain) HPI Christina Fox is a 34 y.o. female Patient presents today for a Follow-up for Left Knee pain. Patient was seen at [facility] and had X-rays performed on 01/08/25. Patient states her symptoms have worsened. Patient statesinitially she had woken up and gotten out of bed and experienced a sharp pain through knee. Patientstates she then had an injection here in office 01/04/25. Post injection, she was walking down steps at home and lost her footing, and popped her knee. Patient states she could not walk on knee after incident. Patient states she went to ER after this. Patient states she was told she needed an MRI but needed to see ortho first. Patient states she was prescribed ibuprofen. Patient states she was prescribed prednisone. Patient states she also has been using ice. Patient states this temporarily relieved pain. Patient states she can still barely bend her knee/has trouble walking. Patient rates her pain today a 7/10. Knee Pain CURRENT MEDICATIONS Current Outpatient Medications Medication Instructions ibuprofen (MOTRIN) 800 mg, 2 times daily metoprolol tartrate (LOPRESSOR) 25 mg, oral, 2 times daily ALLERGIES Allergies Allergen Reactions Codeine Methylprednisolone Nausea And Vomiting Penicillins Other (See Comments) Light headed PAST MEDICAL/SURGICAL HISTORY No past medical history on file. No past surgical history on file. SOCIAL HISTORY FAMILY HISTORY No family history on file. REVIEW OF SYSTEMS General: No recent fever or chills, no recent weight loss or weight gain, no insomnia HEENT: No change in vision, no glasses/contacts, no hearing loss, no tinnitus, no vertigo, no congestion/sinus issues CVS: No chest pain, no palpitations, no edema, no varicose veins Resp: No dyspnea, no wheezing, no cough, no hemoptysis GI: No dysphagia, no nausea, no vomiting, no heart burn, no constipation, no diarrhea : No dysuria, no hematuria, no nocturia, no history of chronic UTI Musculoskeletal: See HPI Derm: No rash, no abrasions, no skin discoloration, no history or MRSA Neuro: See HPI Endo: No cold/heat intolerance Heme: No abnormal bruising or bleeding Psych: No depression, no anxiety, no fatigue, no mood swings Scribe Attestation: I, Ritu Dvaid CMA acted as a scribe and transcribed components of the currentencounter under the direction of the Attending Provider. I have not been involved in providing any clinical treatments or patient care. Electronically Signed, Ritu David CMA OBJECTIVE Vitals: 01/18/25 1418 BP: (!) 140/86 Pulse: 96 Weight: (!) 163.3 kg (360 lb) Height: 1.549 m (5' 1 ) Ortho Exam Left Knee Exam General: Awake, Alert, Oriented x3, Well developed Appearance: - effusion, - localized swelling, - deformity, -masses Tenderness to palpation: + Medial joint line, -Lateral joint line, + Patellofemoral joint, -MCL, -LCL, -Posterior, - Quad Tendon, - Patellar Tendon, -Hamstring, - Gastrocnemius ROM: 80 Flexion, 0 Extension, +crepitus Strength: 4/5 Testing: + Luciano, -Marck, -Posterior drawer, -Valgus stress, -Varus stress Neurovascular: NVI, -Homans Skin: normal appearance with no discoloration or wounds Gait: normal IMAGING/OUTSIDE REPORTS Outside Xrays from [facility] performed on 01/08/25 were reviewed today revealin. No acute abnormality of the knee. 2. Mild to moderate degenerative joint disease. ASSESSMENT Problem List Items Addressed This Visit None Visit Diagnoses Internal derangement of left knee - Primary Relevant Orders MR lower extremity joint only without IV contrast left side Primary osteoarthritis of left knee Relevant Orders MR lower extremity joint only without IV contrast left side PLAN Return for Follow up after MRI left knee w/o. Rest Ice Elevate Return to Clinic if new or worse symptoms occur WBAT MRI scheduled of Left knee to evaluate the meniscus. In Basket request sent to Mindy and Stan today at time of visit Scribe Attestation: IJennifer CMA/LXMO acted as a scribe and transcribed components of the current encounter under the direction of the Attending Provider. I have not been involved in providing any clinical treatments or patient care. Electronically Signed, GLENDA Ortiz I, Leonard Roger MD attest that I have examined the above patient. I have dictated the exam, diagnosis, and plan to the scribe listed above to be transcribed into this document. I have supplemented the above documentation as warranted. I attest that I have reviewed the above documentation in its entirety and concur. Electronically Signed, Leonard Roger MD 01/18/2025 3:20 PM EDT Rukhsana Arnett: [facility] / [facility] is undergoing an EHR transition as of this date of service. There may be a delay in uploading older paper and EHR chart data to this new system. The above encounter has been documented to the best of the provider's working knowledge of the EHR in conjunction with medical information provided by the patient (and/or the patient's family member). documented in this encounter Plan of Treatment Not on file documented as of this encounter Results * MR lower extremity joint only without IV contrast left side (01/26/2025 2:28 PM EDT) Anatomical Region Laterality Modality Lower Extremity, Hip, Knee, Ankle Magnetic Resonance (MRI) 01/26/2025 2:34 PM EDT Impressions 01/26/2025 2:38 PM EDT Exam compromised by artifact as noted above. There is evidence of superficial infrapatellar bursitis. No other significant findings. Narrative 01/26/2025 2:38 PM EDT MR imaging of the left knee HISTORY: Left knee pain for 3 months FINDINGS: Noncontrast imaging. No prior exams. There is artifact from obesity and motion. The ACL and PCL are intact. There is recruitment of red marrow in the proximal tibia and fibula distal femur. There is a moderately large amount of fluid and edema anterior to the patellar tendon in the upper anterior tibia. Quadriceps and patellar tendons are intact. There is moderate narrowing of the patellofemoral articulation. Patellar articular cartilage is difficult to evaluate secondary to artifact. There is no significant joint fluid. The medial and lateral collateral ligament complexes appear to be intact. Some increased signal in the posterior horns of the medial and lateral menisci does not appear to extend into the inner one third or articular surfaces. Procedure Note Devora Rivera MD - 01/26/2025 MR imaging of the left knee HISTORY: Left knee pain for 3 months FINDINGS: Noncontrast imaging. No prior exams. There is artifact from obesity and motion. The ACL and PCL are intact. There is recruitment of red marrow in the proximal tibia and fibula distal femur. There is a moderately large amount of fluid and edema anterior to the patellar tendon in the upper anterior tibia. Quadriceps and patellar tendons are intact. There is moderate narrowing of the patellofemoral articulation. Patellar articular cartilage is difficult to evaluate secondary to artifact. There is no significant joint fluid. The medial and lateral collateral ligament complexes appear to be intact. Some increased signal in the posterior horns of the medial and lateral menisci does not appear to extend into the inner one third or articular surfaces. IMPRESSION: Exam compromised by artifact as noted above. There is evidence of superficial infrapatellar bursitis. No other significant findings. us Leonard Roger MD IMG MRI ORDERABLES Final Resu lt documented in this encounter Visit Diagnoses Diagnosis Internal derangement of left knee- Primary Primary osteoarthritis of left knee Internal derangement of left knee Primary osteoarthritis of left knee documented in this encounter
--- OUTSIDE RECORDS SUMMARY | 2025-01-26 13:30 | XMS_ITS | Encounter Summary ---
Author Organization [employer] ([place], [place], [place], [place]) Address [address] [place] [address] Care Team Providers Care Director Of Community Education Name Role Phone Maco Ervin MD Primary Care Provider [phone] Reason for Referral * MRI (Routine) - Closed Specialty Diagnoses / Procedures Referred By Contac t Referred To Contact Radiology Diagnoses Internal derangement of left knee Primary osteoarthritis of left knee Procedures MR lower extremity joint only without IV contrast left side Leonard Roger MD [address] [place] [address] Phone: tel: fax: [address] [address] Phone: tel: fax: Referral ID Status Reason Start Date Expiration Date V isits Requested Visits Authorized [id number] Closed Continuity of Care 01/18/2025 01/18/2026 1 1 Reason for Visit * MRI (Routine) - Closed Specialty Diagnoses / Procedures Referred By Contac t Referred To Contact Radiology Diagnoses Internal derangement of left knee Primary osteoarthritis of left knee Procedures MR lower extremity joint only without IV contrast left side Leonard Roger MD [address] [place] [address] Phone: tel: fax: [address] [address] Phone: tel: fax: Referral ID Status Reason Start Date Expiration Date V isits Requested Visits Authorized [id number] Closed Continuity of Care 01/18/2025 01/18/2026 1 1 Encounter Details Date Type Department Care Team (Late st Contact Info) Description 01/26/2025 1:30 PM EDT - 01/26/2025 11:59 PM EDT Hospital Encounter [facility] MRI [address] [place] [address] Leonard Roger MD [address] [place] [phone] Internal derangement of left knee; Primary osteoarthritis of left knee Discharge Disposition: Home or Self Care Social History Tobacco Use Types Packs/Day Years Used Date Smoking Tobacco: Never Assessed Comments Unknown Sex and Gender Information Value Date Recorded Sex Assigned at Not on file Legal Sex Female 5:59 PM CDT Gender Identity Not on file Sexual Orientation Not on file documented as of this encounter Medications at Time of Discharge ibuprofen (MOTRIN) 800 MG tablet Take 1 tablet (800 mg total) by mouth 2 (two) times daily. 12/01/2024 metoprolol tartrate (LOPRESSOR) 25 MG tablet Take 1 tablet (25 mg total) by mouth 2 (two) times daily. documented as of this encounter Plan of Treatment Not on file documented as of this encounter Procedures Procedure Name Priority Date/Time Associated Diagnosis Comments MR LOWER EXTREMITY JOINT ONLY WITHOUT IV CONTRAST LEFT Routine 01/26/2025 2:28 PM EDT Internal derangement of left knee Primary osteoarthritis of left knee documented in this encounter Results * MR lower extremity [...] other significant findings. us Leonard Roger MD IM MRI ORDERABLES Final Resu lt documented in this encounter Visit Diagnoses Diagnosis Internal derangement of left knee Primary osteoarthritis of left knee documented in this encounter Care Teams Director Of Community Education Relationship Specialty Start Date End Date Maco Ervin MD [address] [place] [address] PCP - General Family Medicine 01/26/25 documented as of this encounter
--- OUTSIDE RECORDS SUMMARY | 2025-02-01 13:00 | XMS_ITS | Encounter Summary ---
Author Organization [facility] ([place], [place], [place], [place]) Address [address] [place] [address] Care Team Providers Care Avp Name Role Phone Maco Ervin MD Primary Care Provider [phone] Reason for Referral * Consultation (Routine) - New Request Specialty Diagnoses / Procedures Referred By Keysha zimmerman Referred To Contact Physical Therapy Diagnoses Primary osteoarthritis of left knee Leonard Roger MD [address] [place] [address] Phone: tel: fax: Referral ID Status Reason Start Date Expiration Date Visits Requested Visits Authorized [id number] New Request Specialty Services Required 02/01/2025 02/01/2026 1 1 Reason for Visit * Reason Comments Follow-up Left knee s/p steroi d on 01/04/25 and MRI results Encounter Details Date Type Department Care Team (Late st Contact Info) Description 02/01/2025 1:00 PM EDT Office Visit [facility] Orthopedics - [address] [phone] Leonard Roger MD [address] [place] [address] Primary osteoarthritis of left knee (Primary Dx) Social History Tobacco Use Types Packs/Day Years Used Date Smoking Tobacco: Never Smokeless Tobacco: Never Tobacco Cessation:Counseling Given: Not Answered Alcohol Use Standard Drinks/Week Comments Yes 0 (1 standard drink = 0.6 oz pur e alcohol) Comments Unknown Sex and Gender Information Value Date Recorded Sex Assigned at Not on file Legal Sex Female 5:59 PM CDT Gender Identity Not on file Sexual Orientation Not on file documented as of this encounter Last Filed Vital Signs Vital Sign Reading Time Taken Comments Blood Pressure 102/70 02/01/2025 1:08 PM EDT Pulse 106 02/01/2025 1:08 PM EDT Temperature - - Respiratory Rate 18 02/01/2025 1:08 PM EDT Oxygen Saturation - - Inhaled Oxygen Concentration - - Weight 163.3 kg (360 lb) 02/01/2025 1:08 PM EDT Height 154.9 cm (5' 1 ) 02/01/2025 1:08 PM EDT Body Mass Index 68.02 02/01/2025 1:08 PM EDT documented in this encounter Progress Notes * Leonard Roger MD - 02/01/2025 1:00 PM EDT NAME: Christina Fox CSN: [id number] : 1990 PCP: Maco Ervin MD REASON FOR VISIT Follow-up (Left knee s/p steroid on 01/04/25 and MRI results ) HPI Christina Fox is a 34 y.o. female Established patient presents for follow up on left knee s/p cortisone injection from 01/04/25 and MRI results. She reports the injection did not seem to help because 4 days after she had injection shehurt it again. She states it popped about 2 months ago. She reports the symptoms with her knee are the same. She continues to have pain. She rates pain today as 8 out of 10, even at rest. She reports she has extreme pain when she first gets up from sitting or laying to walk as well as going up or down stairs. CURRENT MEDICATIONS Current Outpatient Medications Medication Instructions dexAMETHasone sodium phosphate 0.4 % soln 4 mLs, iontophoretic, See admin instructions ibuprofen (MOTRIN) 800 mg, 2 times daily irbesartan-hydrochlorothiazide (AVALIDE) 150-12.5 mg per tablet 1 tablet, oral, Daily metoprolol tartrate (LOPRESSOR) 25 mg, 2 times daily ALLERGIES Allergies Allergen Reactions Codeine Methylprednisolone Nausea And Vomiting Penicillins Other (See Comments) Light headed PAST MEDICAL/SURGICAL HISTORY Past Medical History: Diagnosis Date Hypertension Past Surgical History: Procedure Laterality Date SECTION CHOLECYSTECTOMY WISDOM TOOTH EXTRACTION SOCIAL HISTORY Social History Tobacco Use Smoking status: Never Smokeless tobacco: Never Substance Use Topics Alcohol use: Yes Drug use: Never FAMILY HISTORY No family history on file. [...] fatigue, no mood swings Scribe Attestation: I, YAMILET Haynes acted as a scribe and transcribed components of the current encounter under the direction of the Attending Provider. I have not been involved in providing any clinical treatments or patient care. Electronically Signed, YAMILET Haynes OBJECTIVE Vitals: 02/01/25 1308 BP: 102/70 Pulse: 106 Resp: 18 Weight: (!) 163.3 kg (360 lb) Height: [...] discoloration or wounds Gait: normal IMAGING/OUTSIDE REPORTS MR lower extremity joint only without IV contrast left side Narrative: MR imaging of the left knee HISTORY: [...] the inner one third or articular surfaces. Impression: Exam compromised by artifact as noted above. There is evidence of superficial infrapatellar bursitis. No other significant findings. ASSESSMENT Problem List Items Addressed This Visit Musculoskeletal and Integument Primary osteoarthritis of left knee - Primary Relevant Medications dexAMETHasone sodium phosphate 0.4 % soln Other Relevant Orders AMB REFERRAL TO PHYSICAL THERAPY EVALUATE, TREAT AND PLAN OF CARE I discussed with patient in depth the options for treatment of osteoarthritis of the knee. Treatment options that include gentle, low-impact exercise, weight loss, physical therapy to promote quadriceps strengthening, the use of NSAIDs, intra-articular steroid injections, viscosupplementation, and genicular nerve blocks were all discussed. I also discussed that if all conservative measures fail to provide satisfactory relief of symptoms, we can discuss surgical options to include arthroplasty of the knee. PLAN Return for left knee once approved for gel. Rest Ice Elevate Return to Clinic if new or worse symptoms occur Activity as Tolerated Physical therapy ordered Iontophoresis ordered Anti-inflammatories discussed Will submit for left knee gel injection. In basket sent to and December Scribe Attestation: Darby Alvarez RTR acted as a scribe and transcribed components of the current encounter under the direction of the Attending Provider. I have not been involved in providing any clinical treatments or patient care. Electronically Signed, YAMILET Rosen James Rollins, MD attest that I have examined the above patient. I have dictated the exam, diagnosis, and plan to the scribe listed above to be transcribed into this document. I have supplemented the above documentation as warranted. I attest that I have reviewed the above documentation in its entirety and concur. Electronically Signed, Leonard Roger MD 02/01/2025 1:29 PM EDT Nota Melquiades: Harman ERNST / MERRY is undergoing an [...] patient's family member). documented in this encounter Miscellaneous Notes * Addendum Note - Eduard Frausto - 02/01/2025 1:00 PM EDTAddended by: EDUARD FRAUSTO on: 02/01/2025 01:48 PM Modules accepted: Orders documented in this encounter Plan of Treatment Scheduled Referrals Name Type Priority Associated Diagnoses Orde r Schedule AMB REFERRAL TO PHYSICAL THERAPY EVALUATE, TREAT AND PLAN OF CARE Outpatient Referral Routine Primary osteoarthritis of left knee Expected: 02/01/2025, Expires: 02/01/2026 documented as of this encounter Visit Diagnoses Diagnosis Primary osteoarthritis of left knee- Primary documented in this encounter Care Teams Avp Relationship Specialty Start Date End Date Maco Ervin MD [address] [place] [address] PCP - General Family Medicine 01/26/25 documented as of this encounter
[2025-03-15 18:32] LABS: Microscopic, Urine URINE MICROSCOPIC (MICROSCOPIC)
[2025-03-15 18:55] LABS: Appearance,Urine TURBID (Clear); Bilirubin,Urine Negative (Negative); Blood, Urine 1+ (Negative); Color,Urine YELLOW (Yellow); Glucose,Urine (UA) Negative (Negative); Ketones,Urine Negative (Negative); Leukocyte Esterase,Urine Negative (Negative); Nitrate,Urine POSITIVE (Negative); PH,Urine 5.5 (5.0-8.5); Protein,Urine Negative (Negative); Specific Gravity, Urine >= 1.030 (1.005-1.030); Urobilinogen,Urine 0.2 EU/dl (0.2)
[2025-03-15 19:02] LABS: Basophils # 0.1 K/mm3 (0-0.2); Basophils % 0.4 % (0.1-2.0); Eosinophils # 0.3 Kmm3 (0.0-0.4); Eosinophils % 2.2 % (0.1-12.0); Hematocrit 37.6 % (37.0-47.0); Immature Granulocytes # 0.08 10^3uL; Immature Granulocytes % 0.6 %; Lymphocytes # 2.5 K/mm3 (0.7-4.5); Lymphocytes % 20.1 % (10-50); Mean Corpuscular HGB Conc 29.3 g/dL (31.8-35.4); Mean Corpuscular Hemoglobin 25.3 pg (27.0-31.2); Mean Corpuscular Volume 86.4 fl (81-99); Mean Platelet Volume 10.7 fl (7.4-10.4); Monocytes # 0.7 K/mm3 (0.1-1.0); Monocytes % 5.8 % (1.7-9.3); Neutrophils # 8.9 K/mm3 (1.8-7.8); Neutrophils % 70.9 % (37.0-80.0); Nucleated Red Blood Cells # 0 10^3/uL; Nucleated Red Blood Cells % 0 %; Platelet Count 408 K/mm3 (142-424); Red Blood Count 4.35 M/mm3 (4.20-5.40); Red Cell Distribution Width 15.9 % (11.5-17.5); Red Cell Distribution Width-SD 50.5 fL; White Blood Count 12.5 K/mm3 (4.8-10.8)
[2025-03-15 19:18] LABS: Creatinine,Urine Random 279 mg/dL (Not Estab.)
[2025-03-15 19:39] LABS: Other Crystals,Urine 4+ /lpf
[2025-03-15 19:56] LABS: Alanine Aminotransferase 15 U/L (12-78); Albumin Level 3.7 g/dl (3.5-5.0); Albumin/Globulin Ratio 1.2 (1.1-1.8); Alkaline Phosphatase 93 U/L (38-126); Anion Gap 12.2 mEq/L (5-15); Aspartate Amino Transferase 18 U/L (14-36); Bilirubin,Total 0.6 mg/dl (0.2-1.3); Blood Urea Nitrogen 12 mg/dl (7-17); Calcium 9.2 mg/dl (8.4-10.2); Carbon Dioxide 27 mmol/L (22.0-30.0); Chloride 100 mmol/L (98-107); Chol/HDL Ratio 3.1 (1-3.5); Cholesterol 141 mg/dl (140-200); Estimated Glomerular Filt Rate 114 ml/min (>60); GFR (African American) 138 ML/MIN (>60); Globulin 3.2 g/dL (1.3-3.2); Glucose 90 mg/dl (74-100); HDL Cholesterol 46 mg/dl (40-60); Potassium 4.2 mmoL/L (3.5-5.1); Sodium 135 mmol/L (136-145); Total Protein,Serum 6.9 g/dl (6.3-8.2); Triglycerides 89 mg/dl (30-150); VLDL Cholesterol 18 mg/dL (0-40)
[2025-03-15 20:07] LABS: Direct LDL Cholesterol 68.16 mg/dL (100-129)
[2025-03-15 20:17] LABS: Hemoglobin A1C 6.2 % (4.0-6.0)
[2025-03-15 20:19] LABS: 25-OH Vitamin D, Total < 12.8 ng/mL (30-100)
[2025-03-15 20:27] LABS: Thyroid Stimulating Hormone 3.23 uIU/mL (0.465-4.68)
[2025-03-15 20:37] LABS: HIV Combo NEGATIVE (Negative)
[2025-03-15 20:38] LABS: Hepatitis C Ab Qual. W/ RFX NEGATIVE (Negative)
[2025-03-15 20:46] LABS: Vitamin B12 380 pg/mL (239-931)
[2025-03-17 05:09] LABS: Hepatitis B Surface Antigen Negative (Negative)
--- OUTSIDE RECORDS SUMMARY | 2025-03-17 10:47 | XMS_ITS | Clinical Summary ---
Author Organization [facility] Address [address] [place] [phone] Phone Care Team Providers Care Inventory Administrator Name Role Phone AdánKaya das Flavio RAMEY Primary Care Provider [phone] Allergies Active Allergy Reactions Criticality Noted Date Comments Methylprednisolone Nausea And Vomiting 08/22/20 20 Penicillins Other (See Comments) 10/10/2016 Light headed Medications atorvastatin (LIPITOR) 20 mg Oral Tablet Take by mouth daily. Active Active Problems Problem Noted Date Diagnosed Date Morbid obesity with BMI of 60.0-69.9, adult 03/2020 Mild intermittent asthma without complication Encounters Date Type Department Care Team Description 01/08/2025 10:30 AM EDT - 01/08/2025 11:33 AM EDT Emergency [facility] [place] [id number] Kirill Rosales MD Internal derangement of left knee (Primary Dx) Discharge Disposition: Home or Self Care 01/08/2025 Travel from Last 3 Months Surgical History Surgery Date Site/Laterality Comments SECTION CHOLECYSTECTOMY WISDOM TOOTH EXTRACTION Medical History Medical History Date Comments Asthma Hypertension Family History Medical History Relation Name Comments Arthritis Father Heart Disease Father Depression Mother Arthritis Paternal Grandfather Diabetes Paternal Grandfather Heart Disease Paternal Grandfather Stroke Paternal Grandfather Arthritis Paternal Grandmother Cancer Paternal Grandmother Relation Name Status Comments Brother Alive Father Alive Mother Alive Paternal Grandfather Paternal Grandmother Social History Tobacco Use Types Packs/Day Years Used Date Smoking Tobacco: Never Smokeless Tobacco: Never Alcohol Use Standard Drinks/Week Comments Yes 0 (1 standard drink = 0.6 oz pur e alcohol) rarely Comments No Sex and Gender Information Value Date Recorded Sex Assigned at Not on file Legal Sex Female 11:23 PM EDT Gender Identity Not on file Sexual Orientation Not on file Obstetrics History Last Filed Vital Signs Vital Sign Reading Time Taken Comments Blood Pressure 151/115 01/08/2025 10:09 AM EDT Pulse 100 01/08/2025 10:07 AM EDT Temperature 36.7 C (98 F) 01/08/2025 10:09 AM EDT Respiratory Rate 18 01/08/2025 10:07 AM EDT Oxygen Saturation 99% 01/08/2025 10:07 AM EDT Inhaled Oxygen Concentration - - Weight 163.3 kg (360 lb) 01/08/2025 10:09 AM EDT Height 154.9 cm (5' 1 ) 01/08/2025 10:09 AM EDT Body Mass Index 68.02 01/08/2025 10:09 AM EDT Plan of Treatment Health Maintenance Due Date Last Done Comments Annual Wellness Exam 1992 Pneumococcal Vaccine 0-49 (1 of 2 - PCV) 2008 Cervical Cancer Screening 2010 Pap Smear 2010 HPV/Pap Cotest 2019 DTaP/TDaP/Td (3 - Td or Tdap) 10/06/2023 10/06/2013, 04/25/2005 COVID-19 Vaccine ( - season) 2024 07/17/2021, 10/15/2020, 09/24/2020 Influenza Vaccine (Season Ended) 2025 07/30/2019, 08/28/2018 Hepatitis B Vaccine Completed 04/25/2005, 03/13/2005, 09/05/2001, Additional history exists Meningococcal B Vaccine Aged Out No l onger eligible based on patient's age to complete this topic Procedures Procedure Name Priority Date/Time Associated Diagnosis Comments XR KNEE LEFT AP LATERAL INTERNAL AND EXTERNAL OBLIQUES ZENON 01/08/2025 10:52 AM EDT from Last 3 Months Results * XR KNEE LEFT AP LATERAL INTERNAL AND EXTERNAL OBLIQUES (01/08/2025 10:52 AM EDT) Anatomical Region Laterality Modality Knee Radiographic Daniela ging 01/08/2025 10:5 2 AM EDT Impressions 01/08/2025 10:59 AM EDT 1. No acute abnormality of the knee. 2. Mild to moderate degenerative joint disease. - Note: Radiology results need to be interpreted within a comprehensive clinical context. If you have questions about the radiology report, please contact the office of the ordering clinician. Narrative 01/08/2025 10:59 AM EDT XR KNEE LEFT AP LATERAL INTERNAL AND EXTERNAL OBLIQUES, 01/08/2025 10:52 AM CLINICAL HISTORY: Injury with knee pain COMPARISON: None. PROCEDURE COMMENTS: XR KNEE LEFT AP LATERAL INTERNAL AND EXTERNAL OBLIQUES FINDINGS: No evidence of acute fracture or traumatic malalignment. Suboptimal positioning. Effusion cannot be excluded. [id number] degenerative change with tricompartmental narrowing and hypertrophic spurring. Procedure Note Sean Maurice MD - 01/08/2025 XR KNEE LEFT AP LATERAL INTERNAL AND EXTERNAL OBLIQUES, 01/08/2025 10:52AM CLINICAL HISTORY: Injury with knee pain COMPARISON: None. PROCEDURE COMMENTS: XR KNEE LEFT AP LATERAL INTERNAL AND EXTERNALOBLIQUES FINDINGS: No evidence of acute fracture or traumatic malalignment.Suboptimal positioning. Effusion cannot be excluded. Rjon-[id number] degenerative change with tricompartmental narrowing and hypertrophic spurring. IMPRESSION: 1. No acute abnormality of the knee. 2. Mild to moderate degenerative joint disease. - Note: Radiology results need to be interpreted within a comprehensiveclinical context. If you have questions about the radiology report, please contactthe office of the ordering clinician. Kirill Rosales MD IMG DIAGNOSTIC IMAGING ORDERA BLES Final Result from Last [address] [place] [address] [facility] [place] [address] [facility] Care Teams Inventory Administrator Relationship Specialty Start Date End Date Kaya Mccain APRN [address] [facility] [address] [place] [address] PCP - General Nurse Practitioner 01/08/25
--- OUTSIDE RECORDS SUMMARY | 2025-03-17 10:47 | XMS_ITS | Referral Summary ---
Author Organization [employer] ([place], [place], [place], [place]) Address [address] [place] [address] Care Team Providers Care Computer Systems Technician Name Role Phone Maco Ervin MD Primary Care Provider [phone] Encounters Date Type Department Care Team Description 02/01/2025 1:00 PM EDT Office Visit [address] [phone] Leonard Roger MD Primary osteoarthritis of left knee (Primary Dx) 01/26/2025 Travel 01/26/2025 1:30 PM EDT - 01/26/2025 11:59 PM EDT Hospital Encounter [facility] [address] [place] [address] Leonard Roger MD Internal derangement of left knee; Primary osteoarthritis of left knee Discharge Disposition: Home or Self Care 01/19/[address] [phone] Leonard Roger MD [facility] insurance for mri 01/18/2025 2:00 PM EDT Office Visit [address] [phone] Leonard Roger MD Internal derangement of left knee (Primary Dx); Primary osteoarthritis of left knee 01/04/2025 10:00 AM EDT Office Visit [address] [phone] Leonard Roger MD Primary osteoarthritis of left knee (Primary Dx); Primary osteoarthritis of right knee from Last 3 Months Allergies Active Allergy Reactions Criticality Noted Date Comments Codeine 01/04/2025 Methylprednisolone Nausea And Vomiting 08/22/20 20 Penicillins Other (See Comments) 10/10/2016 Light headed Medications ibuprofen (MOTRIN) 800 MG tablet Take 1 tablet (800 mg total) by mouth 2 (two) times daily. 12/02/19 25 Active metoprolol tartrate (LOPRESSOR) 25 MG tablet Take 1 tablet (25 mg total) by mouth 2 (two) times daily. Active irbesartan-hydroch lorothiazide (AVALIDE) 150-12.5 mg per tablet Take 1 tablet by mouth daily. Active dexAMETHasone sodium phosphate 0.4 % solnIndications:Pr imary osteoarthritis of left knee 4 mLs by iontophoretic route as directed for 30 days. 30 mL 02/02/20 25 025 Active Problems Problem Noted Date Diagnosed Date Primary osteoarthritis of left knee 02/01/2025 Social History Tobacco Use Types Packs/Day Years [...] on file Sexual Orientation Not on file Last Filed Vital Signs Vital Sign Reading [...] Mass Index 68.02 02/01/2025 1:08 PM EDT Plan of Treatment Not on file Procedures Procedure Name Priority Date/Time Associated Diagnosis Comments MR LOWER EXTREMITY JOINT ONLY WITHOUT IV CONTRAST LEFT Routine 01/26/2025 2:28 PM EDT Internal derangement of left knee Primary osteoarthritis of left knee from Last 3 Months Results * MR lower extremity joint only [...] MD IMG MRI ORDERABLES Final Resu lt from Last 3 Months Insurance [facility] Care Teams Computer Systems Technician Relationship Specialty Start Date End Date Maco Ervin MD [address] [place] [address] PCP - General Family Medicine 01/26/25
--- OUTSIDE RECORDS SUMMARY | 2025-03-17 10:47 | XMS_ITS | Encounter Summary ---
Author Organization [facility] ([place], [place], [place], [place]) Address [address] [place] [address] Care Team Providers Care Strategic Partnership Representative Name Role Phone Unavailable Primary Care Provider Unavailabl e Reason for Visit * Reason Onset Date Comments [facility] not [facility] insurance for mri 0 01/19/2025 Encounter Details Date Type Department Care Team (Late st Contact Info) Description 01/19/2025 Telephone [facility] Orthopedics - [address] [phone] Leonard Roger MD [address] [place] [address] [facility] not [facility] insurance for mri Social History Tobacco Use Types Packs/Day Years Used Date Smoking Tobacco: Never Assessed Comments Unknown Sex and Gender Information Value Date Recorded Sex Assigned at Not on file Legal Sex Female 5:59 PM CDT Gender Identity Not on file Sexual Orientation Not on file documented as of this encounter Miscellaneous Notes * Telephone Encounter - Mindy Odell - 01/19/2025 1:51 PM EDTSummary: [facility] DOES NOT TAKE PATIENT'S INSURANCE I was sent an in[employer]ary[facility] message yesterday to schedule this patient for an MRI at an [facility] - I tried to schedule at [facility] but they do not accept her insurance. I left voicemail with the patient telling her [facility] does not accept her insurance and if she had any other preferences documented in this encounter Plan of Treatment Not on file documented as of this encounter Visit Diagnoses Not on filedocumented in this encounter
--- OUTSIDE RECORDS SUMMARY | 2025-03-17 10:47 | XMS_ITS | Clinical Summary ---
Author Organization [employer] ([place], [place], [place], [place]) Address [address] [place] [address] Care Team Providers Care Wireless Communications Engineer Name Role Phone Maco Ervin MD Primary Care Provider [phone] Allergies Active Allergy Reactions Criticality Noted Date [...] Date Primary osteoarthritis of left knee 02/01/2025 Encounters Date Type Department Care Team Description 02/01/2025 1:00 PM EDT Office Visit [facility] Orthopedics - [address] [phone] Leonard Roger MD Primary osteoarthritis of left knee (Primary Dx) 01/26/2025 1:30 PM EDT - 01/26/2025 11:59 PM EDT Hospital Encounter [facility] [address] [place] [address] Leonard Roger MD Internal derangement of left knee; Primary osteoarthritis of left knee Discharge Disposition: Home or Self Care 01/26/2025 Travel 01/19/[address] [phone] Leonard Roger MD [facility] not [facility] her insurance for mri 01/18/2025 2:00 PM EDT Office Visit [address] [address] Leonard Roger MD Internal derangement of left knee (Primary Dx); Primary osteoarthritis of left knee 01/04/2025 10:00 AM EDT Office Visit [address] [phone] Leonard Roger MD Primary osteoarthritis of left knee (Primary Dx); Primary osteoarthritis of right knee from Last 3 Months Social History Tobacco Use Types Packs/Day Years [...] 02/01/2025 1:08 PM EDT Plan of Treatment Health Maintenance Due Date Last Done Comments Depression Screening (12+) 2001 HIV Screening 2004 Hepatitis C Screening 2007 Lipid Panel 2009 Pap Smear 2010 DTAP/TDAP/TD VACCINES (3 - T d or Tdap) 10/06/2023 10/06/2013, 04/25/2005 COVID-19 VACCINE (4 - 2023-2 5 season) 2024 07/17/2021, 10/15/2020, 09/24/2020 Influenza Vaccine (Season Ended) 2025 Tobacco Cessation Counseling and Screening (12+) 02/01/2026 02/01/2025 Pneumococcal Vaccine: 0-49 Years Aged Out No longer eligible b ased on patient's age to complete this topic [...] one third or articular surfaces. Procedure Note Nicole, Devora G, MD - 01/26/2025 MR imaging of the [...] superficial infrapatellar bursitis. No other significant findings. Leonard Roger MD IMG MRI ORDERABLES Final Resu lt from Last 3 Months Insurance [facility] Care Teams Wireless Communications Engineer Relationship Specialty Start Date End Date Maco Ervin MD [address] [place] [address] PCP - General Family Medicine 01/26/25
--- OUTSIDE RECORDS SUMMARY | 2025-03-17 10:47 | XMS_ITS | Encounter Summary ---
Author Organization [employer] ([place], [place], [place], [place]) Address [address] [place] [address] Care Team Providers Care Consumer Banker Name Role Phone Maco Ervin MD Primary Care Provider Encounter Details Date Type Department Care Team (Latest Contact Info) Description 01/26/2025 Travel Social History Tobacco Use Types Packs/Day Years Used Date Smoking Tobacco: Never Assessed Comments Unknown Sex and Gender Information Value Date Recorded Sex Assigned at Not on file Legal Sex Female 5:59 PM CDT Gender Identity Not on file Sexual Orientation Not on file documented as of this encounter Plan of Treatment Not on file documented as of this encounter Visit Diagnoses Not on filedocumented in this encounter Care Teams Consumer Banker Relationship Specialty Start Date End Date Maco Ervin MD [address] [place] [address] PCP - General Family Medicine 01/26/25 documented as of this encounter
== END 2025-03-15 23:59 | disposition home or self-care (01) ==
LOC: LAB.DROPOF 03-17 10:44
PROVIDERS: PCP Nurse Practitioner; Visit Provider Nurse Practitioner
DX: I10 Essential (primary) hypertension (principal); E55.9 Vitamin D deficiency, unspecified; Z13.1 Encounter for screening for diabetes mellitus; Z11.59 Encounter for screening for other viral diseases; R30.0 Dysuria; Z68.43 Body mass index [BMI] 50.0-59.9, adult
CPT/HCPCS: 80053; 80061; 81001; 82043; 82306; 82570; 82607; 83036; 84443; 85025; 86803; 87086; 87340; 87389

== ENCOUNTER 2025-05-26 09:15 | Outpatient (CLI) | payer OTHER, SELFPAY ==
--- OUTSIDE RECORDS SUMMARY | 2025-05-28 10:19 | XMS_ITS | Clinical Summary ---
Author Organization [facility] Address [address] [place] [phone] Phone Care Team Providers Care Golf Manager Name Role Phone Kaya Mccain APRN Primary Care Provider [phone] Allergies Active Allergy Reactions Criticality Noted Date Comments Methylprednisolone Nausea And Vomiting 08/22/20 20 Penicillins Other (See Comments) 10/10/2016 Light headed Medications atorvastatin (LIPITOR) 20 mg Oral Tablet Take by mouth daily. Active Active Problems Problem Noted Date Diagnosed Date Morbid obesity with BMI of 60.0-69.9, adult 03/2020 Mild intermittent asthma without complication Surgical History Surgery Date Site/Laterality Comments SECTION [...] Tdap) 10/06/2023 10/06/2013, 04/25/2005 COVID-19 Vaccine ( season) 2025 07/17/2021, 10/15/2020, 09/24/2020 Influenza Vaccine (#1) 2025 07/30/2019, 2017 Hepatitis B Vaccine Completed 04/25/2005, 03/13/2005, 09/05/2001, Additional history exists Meningococcal B Vaccine Aged Out No l onger eligible based on patient's age [place] [address] [facility] [place] [address] [employer] Care Teams Golf Manager Relationship Specialty Start Date End Date Kaya Mccain APRN [address] [facility] [address] [place] [address] PCP - General Nurse Practitioner 01/08/25
== END 2025-05-26 23:59 | disposition home or self-care (01) ==
LOC: LAB.DROPOF 05-28 10:17
PROVIDERS: PCP Nurse Practitioner Obstetrics & Gynecology; Visit Provider Nurse Practitioner Obstetrics & Gynecology
DX: N76.0 Acute vaginitis (principal)
CPT/HCPCS: 87070; 87205

== ENCOUNTER 2025-08-23 10:16 | Outpatient (CLI) | payer OTHER, SELFPAY | END 2025-08-23 23:59 | LOC: LAB.DROPOF 08-25 10:17 | PROVIDERS: PCP Nurse Practitioner; Visit Provider Nurse Practitioner | DX: L02.411 Cutaneous abscess of right axilla (principal) | CPT/HCPCS: 87070; 87205 ==